=== PATIENT | female | born 1940 | race Caucasian/White ===

== ENCOUNTER 2025-06-10 18:20 | Inpatient (IN) | payer OTHER, SELFPAY ==
[2025-06-10] VITALS (8 sets, daily range): BP systolic 136–165; BP diastolic 95–117; BMI 34.0
--- NOTE | 2025-06-10 13:32 | ED.GENMED ---
History of Present Illness
<Isma Montana PA-C - Last Filed: 06/10/25 16:36>
General
Chief Complaint: Change in Mental Status
Source: patient
Exam Limitations: none
Time Seen by Provider: 06/10/25 12:58
History of Present Illness
History of Present Illness:
84-year-old female presents with granddaughter who is the secondary power of erisa attorney stating the patient has not been herself. She was discharged from [facility] about 1 week ago for new onset A-fib and
insomnia. She was placed on metoprolol. While there they were trialing different medications for sleep including Ativan Haldol and Zyprexa and more recently trazodone. She has not been sleeping mainly secondary to a urinary frequency. She is up
every 20-minute having the urge to urinate but does not go. This is ongoing for the patient. She does have a history of dementia but she is off more than usual. Patient denies any pain. She does complain of shortness of breath. She feels like
she has to keep taking deep breaths.
Phy Exam
<Isma Montana PA-C - Last Filed: 06/10/25 16:36>
Physical Exam
Physical Exam:
General: Well-appearing female no acute respiratory distress
HEENT: Normocephalic atraumatic
Heart: Irregular rate and rhythm
Lungs: Tachypneic but clear
Abdomen is soft nontender
Extremities: No cyanosis or significant edema
Skin: Warm no rash
Course
<CLAUDIA Dumont Last Filed: 06/10/25 16:36>
Orders/Labs/Results
Orders:
Orders
06/10/25 13:22
CT Head W/o Iv Contrast Urgent
Comment:
Reason For Exam: confusion, slurred speech
06/10/25 13:23
CT Abd/pelvis W Iv Cont Urgent
Comment:
Reason For Exam: urinary frequency,
06/10/25 13:47
Basic Metabolic Panel Urgent
Complete Blood Count/With Diff Urgent
NT-proBNP Urgent
Troponin I Urgent
Urinalysis Reflex To Culture Urgent
Date Specimen was Collected: 06/10/25
Time Specimen was Collected: 13:41
Urine Microscopic Reflex Cult Urgent
Urine Culture Urgent
CARIN Source: U
Specimen Description:
Date Specimen was Collected: 06/10/25
Time Specimen was Collected: 13:41
06/10/25 14:03
Lorazepam [Ativan] 1 mg PO NOW STA
06/10/25 14:38
CR Chest - 2 Views Urgent
Comment:
Reason For Exam: sob
06/10/25 Dinner
Cholesterol Lowering
Cholesterol Lowering: Sodium, 2 Gram
06/10/25 15:[address] Non Medication Order As Directed
Physician Order: patient can have heart healthy diet
Speech screening from Nursing [Speech Screening from [facility]] Routine
06/10/25 16:10
Ixyfu-Apiz-Izidfbt Urgent
Potassium Urgent
06/10/25 16:24
Bladder Scan- Treatment ONCE
Abnormal Lab Results
06/10/25
13:47
RBC 4.09 L 10^6/uL
(4.20-5.40)
Hct 36.7 L %
(37.0-47.0)
Absolute Neuts (auto) 7.2 H 10^3/uL
(1.4-6.5)
Absolute Monos (auto) 0.8 H 10^3/uL
(0.1-0.6)
Lymphocytes % 17.2 L %
(20.5-51.1)
Sodium 134 L mmol/L
(135-145)
BUN 28 H mg/dl
(7-17)
Calcium 10.4 H mg/dl
(8.4-10.2)
Troponin I 0.036 H* ng/ml
Ur Occult Blood Reflex 1+ A
(Negative)
Leukocyte Esterase Rfl 3+ A
(Negative)
Urine Bacteria (Reflex) Few A
(Negative)
06/10/25 13:47
Vital Signs
Initial and Last Documented VS:
Initial Vital Signs
Temp Pulse Resp BP Pulse Ox
98.6 F 82 16 155/95 96
06/10/25 12:29 06/10/25 12:29 06/10/25 12:29 06/10/25 12:29 06/10/25 12:29
Last Documented Vital Signs
Temp Pulse Resp BP Pulse Ox
98.6 F 96 16 163/111 97
06/10/25 12:29 06/10/25 15:00 06/10/25 14:06 06/10/25 15:06 06/10/25 15:00
<Nixon Andrade MD - Last Filed: 06/10/25 15:29>
Orders/Labs/Results
Orders:
Orders
06/10/25 13:22
CT Head W/o Iv Contrast Urgent
Comment:
Reason For Exam: confusion, slurred speech
06/10/25 13:23
CT Abd/pelvis W Iv Cont Urgent
Comment:
Reason For Exam: urinary frequency,
06/10/25 13:47
Basic Metabolic Panel Urgent
Complete Blood Count/With Diff Urgent
NT-proBNP Urgent
Troponin I Urgent
Urinalysis Reflex To Culture Urgent
Date Specimen was Collected: 06/10/25
Time Specimen was Collected: 13:41
Urine Microscopic Reflex Cult Urgent
Urine Culture Urgent
CARIN Source: U
Specimen Description:
Date Specimen was Collected: 06/10/25
Time Specimen was Collected: 13:41
06/10/25 14:03
Lorazepam [Ativan] 1 mg PO NOW STA
06/10/25 14:38
CR Chest - 2 Views Urgent
Comment:
Reason For Exam: sob
06/10/25 Dinner
Cholesterol Lowering
Cholesterol Lowering: Sodium, 2 Gram
06/10/25 15:[address] Non Medication Order As Directed
Physician Order: patient can have heart healthy diet
Speech screening from Nursing [Speech Screening from [facility]] Routine
06/10/25 16:10
Rrgca-Xrng-Bazdfzf Urgent
Potassium Urgent
06/10/25 16:24
Bladder Scan- Treatment ONCE
Abnormal Lab Results
06/10/25
13:47
RBC 4.09 L 10^6/uL
(4.20-5.40)
Hct 36.7 L %
(37.0-47.0)
Absolute Neuts (auto) 7.2 H 10^3/uL
(1.4-6.5)
Absolute Monos (auto) 0.8 H 10^3/uL
(0.1-0.6)
Lymphocytes % 17.2 L %
(20.5-51.1)
Sodium 134 L mmol/L
(135-145)
BUN 28 H mg/dl
(7-17)
Calcium 10.4 H mg/dl
(8.4-10.2)
Troponin I 0.036 H* ng/ml
Ur Occult Blood Reflex 1+ A
(Negative)
Leukocyte Esterase Rfl 3+ A
(Negative)
Urine Bacteria (Reflex) Few A
(Negative)
06/10/25 13:47
Vital Signs
Initial and Last Documented VS:
Initial Vital Signs
Temp Pulse Resp BP Pulse Ox
98.6 F 82 16 155/95 96
06/10/25 12:29 06/10/25 12:29 06/10/25 12:29 06/10/25 12:29 06/10/25 12:29
Last Documented Vital Signs
Temp Pulse Resp BP Pulse Ox
98.6 F 96 16 163/111 97
06/10/25 12:29 06/10/25 15:00 06/10/25 14:06 06/10/25 15:06 06/10/25 15:00
<Isma Montana PA-C - Last Filed: 06/10/25 16:36>
MDM/Problems Addressed
Differential Diagnosis Includes:
Patient presents with granddaughter who expresses her frustration with the patient's current state. She is not sleeping she is not herself. She has been slurring her words. Recent visit to [facility] with new diagnosis of
A-fib now on Eliquis and metoprolol. She has trialed several different sleeping medications but she is not sleeping. Urinalysis has been negative. Will recheck this today. Given the slurred speech and new Eliquis, will order CT of the head.
Also abdomen and pelvis CT pending to evaluate the bladder and kidneys. Check labs.
<Isma Montana PA-C - Last Filed: 06/10/25 16:36>
*Pulse Oximetry
SaO2: 96
Oxygen Mode of Delivery: Room air
Patient hypoxic: no
*Critical Care Note
Total Time (30-74mins, 75-104mins- exclusive of procedures): Not Applicable
<Isma Montana PA-C - Last Filed: 06/10/25 16:36>
Update Note
Update Note:
BNP and troponin mildly elevated. CT demonstrates very large exophytic cyst on the right kidney displacing the colon. This may have some into the patient's urinary symptoms. Bladder scan ordered if retaining a significant amount of urine will
consider catheter. She may require Lasix for CHF. Discussed with emergency room attending. Will admit for further evaluation
ED Attending Note
<Isma Montana PA-C - Last Filed: 06/10/25 16:36>
-
Portions of this chart may have been created with voice recognition software.� Occasional wrong word or��sound alike� substitutions may have occurred due to the inherent limitations of voice recognition software.
<Nixon Andrade MD - Last Filed: 06/10/25 15:29>
ED Attending Note
Patient seen and examined by attending physician: Yes
ED Attending Note:
I have seen and evaluated the patient with a [id number] encounter. I have spoken to the advance practicer provider and involved in the medical history, the physical exam, medical decision making.
Evaluation and management service: agree unless noted differently below.
Results interpretation: agree unless noted differently below.
Focused HPI: 84-year-old female with history of mild dementia presents to the ER with granddaughter for evaluation of multiple complaints. Primarily granddaughter with concern for mental status changes over the past week or so�reports that patient
has been increasingly lethargic. Patient himself complains mainly of feeling short of breath 'I have to focus on my breathing.' It sounds like she has had significant trouble sleeping�unclear whether this is due to breathing issues or due to
urinary issues. Granddaughter notes the patient has severe urinary urgency where she has to [place] to the restroom and will urinate very small amounts. She reports that patient has been evaluated for UTI multiple times without infection. Aside from
breathing issues and urinary issues patient has also had some slurred speech although granddaughter attributes this to fatigue from lack of sleep. Patient did notably have a recent admission at [facility] for similar symptoms�[facility]
indicates that there was some question of heart failure and patient had echocardiogram at the time which reportedly showed ejection fraction of 55 to 60%.
Physical exam: Patient is sitting upright, sleeping but easily arousable. She is hypertensive but has otherwise normal vitals. She has no cardiac rubs gallops or murmurs. Breath sounds are somewhat diminished at the lung bases. She has trace
edema around her lower legs. No JVD.
Medical Decision Makin-year-old female presents with multiple complaints including shortness of breath, sleep issues, lethargy, urinary symptoms. Vitals and exam as above. Labs were sent off including a CBC and a CMP which showed no
clinically significant abnormalities. Troponin and proBNP both elevated. Urinalysis negative for infection. Awaiting chest x-ray. Daughter reporting slurred speech, checking CT head for completeness but low suspicion for acute stroke. With
urinary symptoms and plan urinalysis will check CT to rule out nephrolithiasis or other pathology. Overall I think much of her clinical picture can be explained with congestive heart failure, we will plan likely for admission for diuresis and
monitoring.
Discharge Plan
Departure
Patient Disposition: Admit
Date of Disposition: 06/10/25
Time of Disposition: 16:36
Presentation/result/management discussed w/ accepting MD/DO: Hospitalist
Discharge Problem:
CHF (congestive heart failure)
Prescriptions:
No Action
trazodone 50 mg tablet
50 mg PO HS
olanzapine 2.5 mg tablet
2.5 mg PO DAILYPRN PRN (Reason: agitation)
metoprolol tartrate 25 mg tablet
25 mg PO BID
trospium 20 mg tablet
20 mg PO BID
Eliquis 5 mg tablet
5 mg PO BID
Referrals:
UNKNOWN - PT DOES,NOT KNOW [Family Provider]
Interventions
Interventions:
*Risk Screen - Suicide Last Done: 06/10/25 12:29
*General Assessment Last Done: 06/10/25 13:30
*Neglect/Abuse Screening Last Done: 06/10/25 13:30
*ED COVID-19 Vaccine History Last Done: 06/10/25 13:30
ED- Cardiac Assessment Last Done: 06/10/25 13:30
ED- Neurological Assessment Last Done: 06/10/25 13:30
ED Swallowing Screen Last Done: 06/10/25 13:30
Discharge Date and Time
Print Language: DANISH
[2025-06-10 14:09] LABS: Urine Character Clear (Clear)
[2025-06-10 14:15] LABS: Urine Red Blood Cell 0-2 /HPF (0-2)
[2025-06-10 14:28] LABS: Blood Urea Nitrogen 28 mg/dl (7-17); Calcium 10.4 mg/dl (8.4-10.2); Carbon Dioxide 26 mmol/L (22-30); Chloride 103 mmol/L (98-107); Glucose 97 mg/dl (70-99); Sodium 134 mmol/L (135-145); eGFR 54.87
[2025-06-10 14:31] LABS: Troponin I 0.036 ng/ml
[2025-06-10 14:34] LABS: Hematocrit 36.7 % (37.0-47.0); Hemoglobin 12.5 g/dL (12.0-16.0); Mean Corp Hgb Conc. 34.1 g/dL (33.0-37.0); Mean Corpuscular Volume 89.7 fL (81.0-99.0); Nucleated Red Blood Cells % 0 %; Platelet Count 244 10^3/uL (130-400); Red Cell Dist. Width 12.9 % (11.5-14.5)
--- NOTE | 2025-06-10 16:38 | HPS.HSE ---
Family Physician
-
Family Physician: NOT KNOW UNKNOWN - PT DOES
Chief Complaint
-
Urinary Frequency and Insomnia
History of Present Illness
Patient is an 84 y/o female past medical history of newly diagnosed atrial fibrillation, severe left ventricular hypertrophy and dementia who presents with urinary frequency and worsening insomnia. Additional history is obtained from patient's
granddaughter at the bedside. Patient was admitted to [facility] from May 21- with atrial fibrillation with rapid ventricular response. Granddaughter notes that hospitalization was complicated by acute delirium with agitation, and since
discharge patient has not been sleeping at night. She was started on trazodone without much improvement. Patient has also been getting up frequently at night to use the bathroom, but states that when she attempt to void she is unable to do so.
She was started on trospium about 3 days ago by her PCP for overactive bladder without any improvement in her symtpoms. Bladder scan in the emergency department revealed urinary retention.
Medical History
Past Medical History
Past Medical History: Reports Other
Additional Past Medical History:
Atrial Fibrillation
Severe Concentric Left Ventricular Hypertrophy
Dementia
Insomnia
Past Surgical History: Reports Other
Additional Past Surgical History:
Abdominal Hernia w/ Mesh Repair
KAELA w/BSO
Laminectomy
Social History
Tobacco: Non-smoker
Living: With Family
Family History
Family History: Not pertinent
Allergies / Home Medications
Allergies reflects when Allergies were last updated in [facility].
Home Medications with original date entered in [facility]
Allergy/Medication List:
Allergies
Allergy/AdvReac Type Severity Reaction Status Date / Time
No Known Allergies Allergy Unverified 06/10/25 12:42
Home Medications
apixaban 5 mg tablet (Eliquis) 5 mg PO BID 06/10/25
metoprolol tartrate 25 mg tablet 25 mg PO BID 06/10/25
olanzapine 2.5 mg tablet 2.5 mg PO DAILYPRN PRN agitation 06/10/25
trazodone 50 mg tablet 50 mg PO HS 06/10/25
trospium 20 mg tablet 20 mg PO BID 06/10/25
Review of Systems
-
A 12 point ROS was completed and negative except as noted: Yes
Constitutional: Denies Fever
Respiratory: Denies Cough or Trouble Breathing
Cardiac: Denies Chest Pain or Palpitations
Abdomen/GI: Reports Constipated
Physical Exam
Vital Signs
Vital Signs
Temp Pulse Resp BP Pulse Ox
98.6 F 96 16 163/111 97
06/10/25 12:29 06/10/25 15:00 06/10/25 14:06 06/10/25 15:06 06/10/25 15:00
Physical Exam
General: Comfortable and Conversant
HEENT: Anicteric and Moist mucous membranes
Respiratory: Clear and Non Labored Respirations; No Rales
Cardiac: S1/S2 and Irregular Rhythm; No Tachycardia
GI: Soft and Non Tender
Rectal: Deferred by Provider
Musculoskeletal: No Clubbing, No Cyanosis and No Edema
Skin: Warm and Dry
Neuro: Awake, Alert and No Motor Deficits
Psych: Calm
Laboratory Results
-
06/10/25 13:47
Laboratory Results
Total Bilirubin Cancelled 06/10/25 13:47
AST Cancelled 06/10/25 13:47
ALT Cancelled 06/10/25 13:47
Alkaline Phosphatase Cancelled 06/10/25 13:47
Troponin I 0.036 ng/ml H* 06/10/25 13:47
Data Reviewed
-
CT Scan: Report Reviewed by me
Lab Data: Labs Reviewed by me
Old Records: Reviewed
Impression/Plan
-
Acute Urinary Retention, possibly related to constipation/displaced colon in setting of large renal cyst
-Roberts catheter placed in emergency department
-Consult Urology
Large Right Renal Cyst
-Consult Urology
Constipation, suspect related to displacement of colon due to large renal cyst
-Start MiraLAX every other day
Elevated Troponin
-Reviewed prior records for [place] which also revealed elevated troponin, possibly chronically elevated
-Patient is without chest pain at present time
-Continue to monitor
Elevated BNP
-Patient without clinical symptoms of heart failure at this time
-Echo May 2025: Severely increased wall thickness consistent with severe concentric hypertrophy. Left ventricular ejection fraction 55-60%
-Continue low sodium diet
-Monitor Daily Weights
Atrial Fibrillation, seems to be persistent at this point in time
-Continue Eliquis for anticoagulation
-Continue metoprolol for rate control
Dementia
-Patient with prior history of hospital acquired delirium and agitation - Monitor for mood/behavior changes during hospitalization
-Continue Zyprexa PRN
Insomnia
-Continue trazodone
-Add melatonin
DVT proph: Eliquis
Code Status: DNR
[2025-06-10 16:43] LABS: ALT (SGPT) 16 U/L (0-35); AST (SGOT) 25 U/L (14-36); Albumin 3.9 g/dl (3.5-5.0); Alkaline Phosphatase 59 U/L (38-126); Potassium 3.4 mmol/L (3.5-5.1); Total Protein 6.2 g/dl (6.3-8.2)
--- NOTE | 2025-06-10 18:08 | W.PN.UPDATE ---
Update Note
Progress Note Update
Seen and examined by me independently in collaboration with the Physician press assistant Ximena.
Past medical history/social history/medication/allergies reviewed.
Lab data and imaging data reviewed.
Patient brought in because of significant increased frequency of urine.
Patient has a cognitive impairment in the form of dementia according to granddaughter is present at the bedside. Granddaughter is a registered nurse. Increased frequency of urine was ongoing for a while.
Last month she was admitted to [facility] for new onset of A-fib. While she was there she had sundowning issues. She then moved to be with her granddaughter after discharge. Patient is from [place] and her son was living
with her.
We discovered to have a large urinary retention of 700 mL plus and also huge right kidney cyst occupying a huge space in the right abdomen pushing the ascending colon to the left. Not noted to have any prior kidney issues. She apparently was in
her usual state of health prior to the A-fib. She had no chronic diagnoses before that.
Urinalysis does not suggest UTI.
Acute large volume urinary retention suspected neurogenic bladder dysfunction. She has large space-occupying right renal cyst.
Admit to hospital for further evaluation and treatment.
Leave the Roberts catheter in. Consult urology.
History of dementia with behavioral disturbances and sundowning. Continue with trazodone. Add melatonin. Use olanzapine as needed-granddaughter would prefer not to use it but if it becomes really [id number] then okay with it. Watch for falls.
Recent onset of atrial fibrillation on beta-bin and Eliquis which I would continue. Clinically she seems to be in rate controlled A-fib. EKG pending. She has indeterminate troponin elevation without chest pain. Continue to trend troponins
for now. She apparently had high elevation of troponin at [facility]. Follow on telemetry.
Elevated BNP noted but no lower extremity edema, no JVD, chest sounds clear and chest x-ray shows no evidence of CHF. Would hold on diuretics and follow weights.
I discussed CODE STATUS with the granddaughter-wishes of pt are DNR and DNI
[2025-06-10] MEDS: DESYREL 50 MG PO (21:05)
[2025-06-10] MEDS: ELIQUIS 5 MG PO (21:05)
[2025-06-10] MEDS: MELATONIN 5 MG PO (21:05)
[2025-06-10] MEDS: LOPRESSOR 25 MG PO (21:05)
[2025-06-10 22:14] LABS: Troponin I 0.038 ng/ml
[2025-06-11] VITALS (8 sets, daily range): BP systolic 116–174; BP diastolic 80–122; O2SAT 98; BMI 34.0
--- NOTE | 2025-06-11 00:28 | PTCARENOTE ---
Pt admitted to [facility] around 2009. Pt able to answer orientation questions but is very forgetful and anxious. Pt occasionally setting off bed alarm and yelling for help and stating 'I am going to have a panic attack! I need to stand up. My legs
will rot if I don't move them'. Pt stood up at the side of the bed. Range of motion of legs done to show pt that legs are okay. Pt cooperative after. Bed alarm on and plan of care ongoing.
[2025-06-11 03:47] LABS: Troponin I 0.045 ng/ml
[2025-06-11 05:52] LABS: Hematocrit 35.6 % (37.0-47.0); Hemoglobin 11.9 g/dL (12.0-16.0); Mean Corp Hgb Conc. 33.4 g/dL (33.0-37.0); Mean Corpuscular Volume 89.2 fL (81.0-99.0); Platelet Count 221 10^3/uL (130-400); Red Cell Dist. Width 13.0 % (11.5-14.5)
[2025-06-11 06:20] LABS: Blood Urea Nitrogen 23 mg/dl (7-17); Calcium 10.0 mg/dl (8.4-10.2); Carbon Dioxide 26 mmol/L (22-30); Chloride 106 mmol/L (98-107); Estimated Creatinine Clearance 39 ml/min; Glucose 101 mg/dl (70-99); Potassium 2.9 mmol/L (3.5-5.1); Sodium 136 mmol/L (135-145); eGFR > 60.00
[2025-06-11] MEDS: KCL 40 MEQ PO (07:03)
[2025-06-11] MEDS: ELIQUIS 5 MG PO ×2 (08:17→20:36)
[2025-06-11] MEDS: MIRALAX 17 GRAMS PO (08:17)
[2025-06-11] MEDS: LOPRESSOR 25 MG PO ×2 (08:17→20:37)
--- NOTE | 2025-06-11 08:34 | CONS.URO ---
Consultation
-
Date/Time Consultation Performed: 06/11/2025 1245
Requesting Provider: Hospitalists
Performing Provider: Cayden
Reason for Consultation: urinary retention
Medical History
History of Present Illness
ED admit note: 'Patient is an 84 y/o female past medical history of newly diagnosed atrial fibrillation, severe left ventricular hypertrophy and dementia who presents with urinary frequency and worsening insomnia. Additional history is obtained
from patient's granddaughter at the bedside. Patient was admitted to [facility] from May 21- with atrial fibrillation with rapid ventricular response. Granddaughter notes that hospitalization was complicated by acute delirium with agitation,
and since discharge patient has not been sleeping at night. She was started on trazodone without much improvement. Patient has also been getting up frequently at night to use the bathroom, but states that when she attempt to void she is unable to
do so. She was started on trospium about 3 days ago by her PCP for overactive bladder without any improvement in her symtpoms. Bladder scan in the emergency department revealed urinary retention.'
Past Medical History
Past Medical History: Other (Atrial Fibrillation Severe Concentric Left Ventricular Hypertrophy Dementia Insomnia)
Past Surgical History: Other (Abdominal Hernia w/ Mesh Repair KAELA w/BSO Laminectomy)
Allergies/Home Medications
Allergies
Allergy/AdvReac Type Severity Reaction Status Date / Time
No Known Allergies Allergy Unverified 06/10/25 12:42
Home Medications
�Medication �Instructions �Recorded �Confirmed �Type
apixaban 5 mg tablet (Eliquis) 5 mg PO BID 06/10/25 06/10/25 History
metoprolol tartrate 25 mg tablet 25 mg PO BID 06/10/25 06/10/25 History
olanzapine 2.5 mg tablet 2.5 mg PO DAILYPRN PRN agitation 06/10/25 06/10/25 History
trazodone 50 mg tablet 50 mg PO HS 06/10/25 06/10/25 History
trospium 20 mg tablet 20 mg PO BID 06/10/25 06/10/25 History
Physical Exam
Vital Signs
Vital Signs
Temp Pulse Resp BP Pulse Ox
98.4 F 87 16 151/90 98
06/11/25 07:50 06/11/25 08:17 06/11/25 07:50 06/11/25 08:17 06/11/25 07:50
Lab / Testing Results
Laboratory Results
06/11/25 05:18
06/11/25 05:18
Physical Exam
elderly female currently on bedside commode
Genito-urinary: Roberts Catheter
Neuro: Awake
Assessment / Plan
-
Subtotal urinary retention -- elderly females often have capacious bladders that do not completely empty yet w/o adverse effects; likely worsened by constipation
large right renal cyst -- benign
Rec: when medically improved, d/c Roberts, start Bethanechol and teach CIC, if possible
no tx of renal cyst is indicated
Data Reviewed
-
CT Scan: Image personally visualized and interpreted (large right renal cyst; full urinary bladder)
Lab Data: Labs Reviewed
Old Records: Reviewed
[2025-06-11 10:48] LABS: Troponin I 0.047 ng/ml
--- NOTE | 2025-06-11 12:26 | W.PN.HOSP.TC ---
Today's Communication/Plan
-
CW Roberts
CW current meds
Await Urology input
PT /OT eval
Assessment / Plan
Assessment / Plan
Acute Urinary Retention, possibly related to constipation/displaced colon in setting of large renal cyst
-Roberts catheter placed in emergency department
- UA doesnt suggest UTI;no hematuria
-Consult Urology- pending
Large Right Renal Cyst
-Consult Urology
Constipation, suspect related to displacement of colon due to large renal cyst
-Started MiraLAX every other day
Elevated Troponin
-Reviewed prior records for [place] which also revealed elevated troponin, possibly chronically elevated
-Patient is without chest pain at present time
-Continue to monitor
Elevated BNP
-Patient without clinical symptoms of heart failure at this time
-Echo May 2025: Severely increased wall thickness consistent with severe concentric hypertrophy. Left ventricular ejection fraction 55-60%
-Continue low sodium diet
-Monitor Daily Weights
Atrial Fibrillation, seems to be persistent at this point in time
-Continue Eliquis for anticoagulation
-Continue metoprolol for rate control
Hypokalemia -replete
Dementia
-Patient with prior history of hospital acquired delirium and agitation - Monitor for mood/behavior changes during hospitalization
-Continue Zyprexa PRN
- No behavioral disturbance
Insomnia
-Continue trazodone
-Add melatonin
DVT proph: Eliquis
Code Status: DNR
PT/OT eval
Anticipated Discharge: 24 - 48 hours
Subjective/Interval History
-
Date of Service: June 11, 2025
Sitting in chair comfortably.
Complaints of irritation from catheter.
No fever or chills
No N/V or abdo pain
No SOB
Objective Data
-
Labs:
Laboratory Results
06/11/25
05:18
WBC 9.0
Hgb 11.9 L
Hct 35.6 L
Plt Count 221
Sodium 136
Potassium 2.9 L
Chloride 106
Carbon Dioxide 26
BUN 23 H
Creatinine 0.8
Glucose 101 H
Calcium 10.0
Vital Signs:
Vital Signs
Temp Pulse Resp BP Pulse Ox
98.1 F 71 16 141/90 97
06/11/25 11:10 06/11/25 11:10 06/11/25 11:10 06/11/25 11:10 06/11/25 11:10
I&O
06/10/25 06/11/25 06/12/25
06:59 06:59 06:59
Intake Total 960 / 960
Output Total 800 / 800 850 / 850
Balance -800 / -800 110 / 110
Physical Exam
-
General: Comfortable
Respiratory: Clear to Auscultation and Non Labored Respirations; Negative Accessory Resp Muscle Use
Cardiac: S1/S2 and Irregular Rhythm; Negative Tachycardic
GI: Soft and Other (palpable right abdominal mass)
Neuro: Awake, Alert, Oriented and No Motor Deficits; Negative Tremors
Psych: Calm
Data Reviewed
-
Labs: Labs Reviewed by me
[2025-06-11] MEDS: TYLENOL 650 MG PO ×2 (13:13→23:51)
[2025-06-11] MEDS: MELATONIN 5 MG PO (22:32)
[2025-06-11] MEDS: DESYREL 50 MG PO (22:32)
[2025-06-12] VITALS (8 sets, daily range): BP systolic 122–149; BP diastolic 82–100; PULSE 88; O2SAT 98; BMI 33.8
[2025-06-12] MEDS: ELIQUIS 5 MG PO ×2 (07:56→20:55)
[2025-06-12] MEDS: LOPRESSOR 25 MG PO ×2 (07:58→20:55)
[2025-06-12] MEDS: DULCOLAX 10 MG RECTAL (08:08)
--- NOTE | 2025-06-12 08:23 | W.PN.URO.CBU ---
Today's Communication / Plan
-
d/c Roberts; Voiding trial with Bethanechol
Assessment / Plan
-
Partial Urinary Retention -- exacerbated by constipation
large, right benign renal cyst
Diagnosis
-
Date of Service: June 12, 2025
-
Patient Diagnosis:
Partial Urinary Retention -- exacerbated by constipation
large, right benign renal cyst
Subjective
-
has moved bowels since admission
Objective
-
Vital Signs
Temp Pulse Resp BP Pulse Ox
97.5 F 88 15 147/100 98
06/12/25 08:22 06/12/25 08:22 06/12/25 08:22 06/12/25 08:22 06/12/25 08:22
Intake and Output
06/11/25 06/12/25 06/13/25
06:59 06:59 06:59
Intake Total 1919
Output Total 800 / 800 2349 / 2350
Balance -800 / -800 -430 / -430
Intake:
Oral fluids 1919
Output:
Urine, Roberts 800 / 800 2350 / 2350
Laboratory Results
06/11/25 05:18
06/11/25 05:18
Physical Exam
-
General - well developed, well nourished, no acute distress
Chest - clear bilaterally
Abdomen - soft, non-tender, positive bowel sounds, no CVAT, no incisional pain or distention
Genitalia - normal
Rectal - normal
Skin - warm & dry with no rash
Neuro - AOx3, no motor deficits
Extremities - no clubbing, no cyanosis, no edema
Incision - clean, dry
Dressing - clean, dry, intact
--- NOTE | 2025-06-12 09:56 | PTCARENOTE ---
Roberts dc'd per order. Pt tolerated well.
[2025-06-12] MEDS: COLACE 100 MG PO ×2 (11:40→20:54)
--- NOTE | 2025-06-12 11:58 | W.PN.UPDATE ---
Update Note
Progress Note Update
I spoke with daughter Viola and patient by phone.
Large benign right kidney cysts discussed -- as she is NOT willing to consider surgery, no tx is indicated.
He abdominal pain is due to her GI tract -- they will d/w medical team.
[2025-06-12] MEDS: TYLENOL 650 MG PO (12:28)
[2025-06-12] MEDS: MIRALAX 17 GRAMS PO (12:51)
[2025-06-12] MEDS: URECHOLINE 25 MG PO ×2 (12:52→19:22)
--- NOTE | 2025-06-12 14:05 | W.PN.HOSP.TC ---
Today's Communication/Plan
-
Voiding trial
Continue bowel regimen
DC planning
Assessment / Plan
Assessment / Plan
Acute Urinary Retention, possibly related to constipation/displaced colon in setting of large renal cyst
-Roberts catheter placed in emergency department
- UA doesnt suggest UTI;no hematuria
- Appreciate urology input who recommends treating constipation and starting on bethanechol. Voiding trial today plan
Large Right Renal Cyst
- Recommends no intervention by urology
Constipation, suspect related to displacement of colon due to large renal cyst
-Started MiraLAX daily. Added Colace. Advise daily bowel movement going forward for now.
Elevated Troponin
-Reviewed prior records for [place] which also revealed elevated troponin, possibly chronically elevated
-Patient is without chest pain at present time
-Continue to monitor
Elevated BNP
-Patient without clinical symptoms of heart failure at this time
-Echo May 2025: Severely increased wall thickness consistent with severe concentric hypertrophy. Left ventricular ejection fraction 55-60%
-Continue low sodium diet
-Monitor Daily Weights
Atrial Fibrillation, seems to be persistent at this point in time
-Continue Eliquis for anticoagulation
-Continue metoprolol for rate control
Hypokalemia -replete
Dementia
-Patient with prior history of hospital acquired delirium and agitation - Monitor for mood/behavior changes during hospitalization
-Continue Zyprexa PRN
- No behavioral disturbance
Insomnia
-Continue trazodone
-Add melatonin
DVT proph: Eliquis
Code Status: DNR
PT/OT eval-recommend SNF and granddaughter is agreeable.
Anticipated Discharge: Within 24 hours
Subjective/Interval History
-
Date of Service: June 12, 2025
Patient had a bowel movement yesterday with rectal suppository and again today.
According to the granddaughter she is not sure as grandma was living in [place] with the son before but she thinks her bowel movement maybe once a day or once in 2 days. They have been hard lately.
Objective Data
-
Labs:
Laboratory Results
06/12/25
12:43
Sodium Pending
Potassium Pending
Chloride Pending
Carbon Dioxide Pending
BUN Pending
Creatinine Pending
Glucose Pending
Calcium Pending
Vital Signs:
Vital Signs
Temp Pulse Resp BP Pulse Ox
98.0 F 89 15 149/97 98
06/12/25 11:00 06/12/25 11:00 06/12/25 11:00 06/12/25 11:00 06/12/25 11:00
I&O
06/11/25 06/12/25 06/13/25
06:59 06:59 06:59
Intake Total 1919 / 1919
Output Total 800 / 800 2350 / 2350
Balance -800 / -800 -430 / -430
Physical Exam
-
General: Comfortable
Respiratory: Non Labored Respirations; Negative Accessory Resp Muscle Use
Cardiac: Regular Rhythm and S1/S2
GI: Soft
Neuro: Awake, Alert and Oriented
Psych: Calm and Confused; Negative Agitated
Data Reviewed
-
Labs: Labs Reviewed by me
[2025-06-12 14:27] LABS: Blood Urea Nitrogen 22 mg/dl (7-17); Calcium 10.6 mg/dl (8.4-10.2); Carbon Dioxide 29 mmol/L (22-30); Chloride 102 mmol/L (98-107); Estimated Creatinine Clearance 31 ml/min; Glucose 119 mg/dl (70-99); Potassium 3.6 mmol/L (3.5-5.1); Sodium 137 mmol/L (135-145); eGFR 54.87
[2025-06-12] MEDS: MELATONIN 5 MG PO (20:54)
[2025-06-12] MEDS: ANUSOL HC RECTAL (20:56)
[2025-06-12] MEDS: DESYREL 50 MG PO (20:56)
[2025-06-12 22:07] LABS: Glucose - Point of Care 125 mg/dl (70-99)
[2025-06-13] VITALS (7 sets, daily range): BP systolic 120–163; BP diastolic 80–110; PULSE 74; O2SAT 97
[2025-06-13] MEDS: ZYPREXA 2.5 MG PO (02:32)
--- NOTE | 2025-06-13 09:01 | W.PN.URO.CBU ---
Today's Communication / Plan
-
I&O cath prn
Assessment / Plan
-
Partial Urinary Retention -- exacerbated by constipation
large, right benign renal cyst
Diagnosis
-
Date of Service: June 13, 2025
-
Patient Diagnosis:
Partial Urinary Retention -- exacerbated by constipation
large, right benign renal cyst
Subjective
-
did not sense urge to void; I&O cathed for 480 ml
Objective
-
Vital Signs
Temp Pulse Resp BP Pulse Ox
97.4 F 95 18 158/104 93
06/13/25 07:54 06/13/25 07:54 06/13/25 07:54 06/13/25 07:54 06/13/25 07:54
Intake and Output
06/12/25 06/13/25 06/14/25
06:59 06:59 06:59
Intake Total 1919 880 / 880
Output Total 0 / 0 480 / 480
Balance -430 / -430 400 / 400
Intake:
Oral fluids 1919 880 / 880
Output:
Urine, Roberts 0 / 2350
Straight cath output 480 / 480
Other:
Number of approximated MODERATE 2
amounts of urine
Laboratory Results
06/11/25 05:18
06/12/25 12:43
Physical Exam
-
General - asleep in bedside lounger
[2025-06-13] MEDS: LOPRESSOR 25 MG PO ×2 (09:03→23:58)
[2025-06-13] MEDS: COLACE 100 MG PO ×2 (09:04→23:58)
[2025-06-13] MEDS: ELIQUIS 5 MG PO ×2 (09:04→23:59)
[2025-06-13] MEDS: MIRALAX 17 GRAMS PO (09:04)
[2025-06-13] MEDS: ANUSOL HC RECTAL ×2 (09:08→23:58)
[2025-06-13] MEDS: URECHOLINE 25 MG PO ×3 (09:09→18:26)
--- NOTE | 2025-06-13 10:20 | PTCARENOTE ---
informed that granddaughter requests an update phone call.
--- NOTE | 2025-06-13 12:36 | W.PN.HOSP.TC ---
Today's Communication/Plan
-
DC
Assessment / Plan
Assessment / Plan
Acute Urinary Retention, possibly related to constipation/displaced colon in setting of large renal cyst
-Roberts catheter placed in emergency department
- UA doesnt suggest UTI;no hematuria
- Appreciate urology input who recommends treating constipation and starting on bethanechol. Ongoing voiding trial. Needed straight cath this morning but was able to void herself later. Continue to follow her voiding pattern.
Large Right Renal Cyst
- Recommends no intervention by urology
Constipation, suspect related to displacement of colon due to large renal cyst
-Started MiraLAX daily. Added Colace. Advise daily bowel movement going forward for now.
Elevated Troponin
-Reviewed prior records for [place] which also revealed elevated troponin, possibly chronically elevated
-Patient is without chest pain at present time
-Continue to monitor
Elevated BNP
-Patient without clinical symptoms of heart failure at this time
-Echo May 2025: Severely increased wall thickness consistent with severe concentric hypertrophy. Left ventricular ejection fraction 55-60%
-Continue low sodium diet
-Monitor Daily Weights
Atrial Fibrillation, seems to be persistent at this point in time
-Continue Eliquis for anticoagulation
-Continue metoprolol for rate control
Dementia
-Patient with prior history of hospital acquired delirium and agitation - Monitor for mood/behavior changes during hospitalization
-Continue Zyprexa PRN
- No behavioral disturbance
Insomnia
-Continue trazodone
-Add melatonin
DVT proph: Eliquis
Code Status: DNR
PT/OT eval-recommend SNF and granddaughter is agreeable.
Medically stable for discharge to rehab
Anticipated Discharge: Today
Subjective/Interval History
-
Date of Service: June 13, 2025
Pleasantly confused.
Voices no specific complaints .
patient had 2 bowel movements yesterday.
She needed to straight cath once and after that she urinated by herself.
Denies any nausea vomiting or abdominal pain today.
Objective Data
-
Vital Signs:
Vital Signs
Temp Pulse Resp BP Pulse Ox
97.6 F 92 16 147/104 97
06/13/25 11:27 06/13/25 11:31 06/13/25 11:27 06/13/25 11:31 06/13/25 11:27
I&O
06/12/25 06/13/25 06/14/25
06:59 06:59 06:59
Intake Total 1920 / 1920 880 / 880
Output Total 2350 / 2350 480 / 480
Balance -430 / -430 400 / 400
Physical Exam
-
General: No Apparent Distress
Respiratory: Clear to Auscultation and Non Labored Respirations; Negative Accessory Resp Muscle Use
Cardiac: Regular Rhythm and S1/S2; Negative Tachycardic
GI: Soft and Nontender
Neuro: Awake, Alert and Oriented (Self and place)
Psych: Calm and Confused; Negative Agitated
Data Reviewed
-
Labs: Labs Reviewed by me
--- NOTE | 2025-06-13 18:28 | PTCARENOTE ---
made aware that granddaughter requests a palliative care consult.
--- NOTE | 2025-06-13 20:09 | PTCARENOTE ---
Pt would like a palliative care consult. granddaughter at bedside. Dr. Banks aware
[2025-06-13] MEDS: DESYREL 50 MG PO (23:59)
[2025-06-13] MEDS: MELATONIN 5 MG PO (23:59)
[2025-06-14] MEDS: ZYPREXA 2.5 MG PO ×2 (03:50→22:13)
--- NOTE | 2025-06-14 04:00 | PTCARENOTE ---
Pt confused and impulsive throughout night. Startling awake and franticly wanting to stand up. Speaking in very childlike mannerisms, granddaughter confirmed this has been getting worse over past 3 weeks. Pt able to be redirected , but does become
mildly agitated. She verbalizes being agreeable nursing interventions, yet she not as agreeable once performing interventions. Pt verbalizes that she understands how to do simple things like use call gupta and stay in chair until someone can assist
her, yet she calls out and jumps out of chair. Pt continued to have difficulty urinating and emptying, BS of 403, F placed as per direction of Dr. Banks per pt granddaughter request, HEAVY EQUIPMENT TECHNICIAN aware and placed order. Urine cloudy and malodorous. HEAVY EQUIPMENT TECHNICIAN
aware, UA/UC ordered.
[2025-06-14 05:34] LABS: Urine Character Slightly Cloudy (Clear)
[2025-06-14 06:00] VITALS: BMI 34.0
[2025-06-14 06:00] LABS: Urine Squamous Cell >30 /LPF (Few)
[2025-06-14 06:01] LABS: Urine Red Blood Cell >100 /HPF (0-2); Urine White Cell >100 /HPF (0-5)
[2025-06-14 07:00] VITALS: BP 144/102
[2025-06-14] MEDS: LOPRESSOR 25 MG PO ×2 (08:48→21:14)
[2025-06-14] MEDS: ANUSOL HC 25 MG RECTAL (08:48)
[2025-06-14] MEDS: ELIQUIS 5 MG PO ×2 (08:48→21:14)
[2025-06-14] MEDS: MIRALAX 17 GRAMS PO (08:48)
[2025-06-14] MEDS: COLACE 100 MG PO ×2 (08:48→21:13)
[2025-06-14] MEDS: URECHOLINE 25 MG PO ×3 (08:52→18:02)
--- NOTE | 2025-06-14 09:00 | PTCARENOTE ---
Pt ambulated in hallway, assisted back to chair. Once sitting, red bloody drainage observed from Roberts catheter tubing. made aware.
[2025-06-14 11:59] VITALS: BP 108/70; PULSE 76; O2SAT 94
--- NOTE | 2025-06-14 12:43 | PTCARENOTE ---
Pt c/o increased anxiety and being unable to take a deep breathe. Pt requested medication for anxiety. Pt stated, 'I just can't relax'. made aware, new order provided, see MAR.
[2025-06-14] MEDS: VALIUM INJECTION 1.25 MG IV (12:52)
[2025-06-14] MEDS: FLUSH (NSS) 2 FLUSH IV (12:53)
[2025-06-14 15:00] VITALS: BP 115/75
--- NOTE | 2025-06-14 15:25 | W.PN.HOSP.TC ---
Today's Communication/Plan
-
Continue the current treatments
Ongoing disposition efforts
Assessment / Plan
Assessment / Plan
Acute Urinary Retention, possibly related to constipation/displaced colon in setting of large renal cyst
-Roberts catheter placed in emergency department
- UA doesnt suggest UTI;no hematuria
- Appreciate urology input who recommends treating constipation and starting on bethanechol. Ongoing voiding trial-failed Roberts catheter back in place. Voiding trial again in rehab. Physical therapy treatments and constipation treatments
- Blood in the Roberts bag noted but the catheter urine currently is clear. Unclear of traumatic. Will keep an eye on it for now. Patient is on Eliquis which would continue if the urine remains clear.
Large Right Renal Cyst
- Recommends no intervention by urology
Constipation, suspect related to displacement of colon due to large renal cyst
- Continue with Colace and MiraLAX. Advise daily bowel movement going forward for now.
Elevated Troponin
-Reviewed prior records for [place] which also revealed elevated troponin, possibly chronically elevated
-Patient is without chest pain at present time
-Continue to monitor
Elevated BNP
-Patient without clinical symptoms of heart failure at this time
-Echo May 2025: Severely increased wall thickness consistent with severe concentric hypertrophy. Left ventricular ejection fraction 55-60%
-Continue low sodium diet
-Monitor Daily Weights
Atrial Fibrillation, seems to be persistent at this point in time
-Continue Eliquis for anticoagulation
-Continue metoprolol for rate control
Dementia
-Patient with prior history of hospital acquired delirium and agitation - Monitor for mood/behavior changes during hospitalization
-Continue Zyprexa PRN
- No behavioral disturbance
Insomnia
-Continue trazodone
-Add melatonin
DVT proph: Eliquis
Code Status: DNR
PT/OT eval-recommend SNF and granddaughter is agreeable.
Anticipated Discharge: 24 - 48 hours
Subjective/Interval History
-
Date of Service: June 14, 2025
Patient was noted to be restless and anxious by the nursing staff. Calm down after getting Ativan.
Patient complains of sleep issues and requesting a sleep aid.
Patient's son at bedside.
Patient denies any nausea vomiting or abdominal pain.
Roberts catheter went in because of retention last night. She had some blood in the Roberts bag and there was a concern it was traumatic.
Denies shortness of breath.
Objective Data
-
Vital Signs:
Vital Signs
Temp Pulse Resp BP Pulse Ox
97.7 F 88 16 144/102 97
06/14/25 07:00 06/14/25 08:48 06/14/25 07:00 06/14/25 08:48 06/14/25 07:00
I&O
06/13/25 06/14/25 06/15/25
06:59 06:59 06:59
Intake Total 880 / 880 720 / 720
Output Total 480 / 480 350 / 350
Balance 400 / 400 370 / 370
Physical Exam
-
General: No Apparent Distress
HEENT: Moist Mucous Membranes
Respiratory: Crackles (Few bibasilar crackles) and Non Labored Respirations; Negative Wheezes or Accessory Resp Muscle Use
Cardiac: Regular Rhythm and S1/S2
GI: Soft
Genito-urinary: Bloody Urine (Blood in the Roberts bag but catheter urine looks clear now) and Roberts
Neuro: Awake, Alert and Oriented (Self only)
Psych: Calm and Confused; Negative Agitated
Data Reviewed
-
Labs: Labs Reviewed by me
[2025-06-14] MEDS: ANUSOL HC RECTAL (21:13)
[2025-06-14] MEDS: MELATONIN 5 MG PO (21:14)
[2025-06-14] MEDS: DESYREL 50 MG PO (21:14)
[2025-06-14 23:00] VITALS: BP 118/75
[2025-06-15] MEDS: VALIUM INJECTION 1.25 MG IV (01:18)
--- NOTE | 2025-06-15 03:20 | PTCARENOTE ---
Addendum entered by Kalli Balderrama RN 06/15/25 06:06:
Pt also intermittently wakes with right leg restlessness and/or panic with associated SOB.
Original Note:
very poor sleep, sleeps and wakes in a startle frequently. AOX 3 but confused coversation and poor recollection as to why she is here. More anxious, restless impulsive and mildy agitated as night progressed despite medication.
[2025-06-15 07:37] VITALS: BP 144/82
[2025-06-15 08:01] LABS: Hematocrit 37.4 % (37.0-47.0); Hemoglobin 12.4 g/dL (12.0-16.0); Mean Corp Hgb Conc. 33.2 g/dL (33.0-37.0); Mean Corpuscular Volume 90.6 fL (81.0-99.0); Platelet Count 245 10^3/uL (130-400); Red Cell Dist. Width 13.2 % (11.5-14.5)
[2025-06-15 08:36] LABS: Blood Urea Nitrogen 34 mg/dl (7-17); Calcium 10.8 mg/dl (8.4-10.2); Carbon Dioxide 22 mmol/L (22-30); Chloride 104 mmol/L (98-107); Estimated Creatinine Clearance 26 ml/min; Glucose 112 mg/dl (70-99); Potassium 3.4 mmol/L (3.5-5.1); Sodium 135 mmol/L (135-145); eGFR 44.08
[2025-06-15] MEDS: COLACE 100 MG PO ×2 (10:19→21:01)
[2025-06-15] MEDS: ELIQUIS 5 MG PO ×2 (10:19→21:01)
[2025-06-15] MEDS: ANUSOL HC 25 MG RECTAL (10:19)
[2025-06-15] MEDS: MIRALAX 17 GRAMS PO (10:20)
[2025-06-15] MEDS: LOPRESSOR 25 MG PO ×2 (10:20→21:02)
[2025-06-15] MEDS: LR 1000 IV ×2 (10:24→23:09)
[2025-06-15] MEDS: KCL ELIXIR 40 MEQ PO (10:24)
[2025-06-15] MEDS: URECHOLINE 25 MG PO ×3 (10:26→17:39)
--- NOTE | 2025-06-15 10:32 | W.PN.HOSP.TC ---
Today's Communication/Plan
-
Start on IV fluids. Check creatinine tomorrow.
Palliative care consult tomorrow.
Assessment / Plan
Assessment / Plan
Acute Urinary Retention, possibly related to constipation/displaced colon in setting of large renal cyst
-Roberts catheter placed in emergency department
- UA doesnt suggest UTI;no hematuria
- Appreciate urology input who recommends treating constipation and starting on bethanechol. Ongoing voiding trial-failed Roberts catheter back in place. Voiding trial again in rehab. Physical therapy treatments and constipation treatments
- Blood in the Roberts bag noted but the catheter urine currently is clear. Unclear of traumatic. Will keep an eye on it for now. Patient is on Eliquis which would continue if the urine remains clear.
MAGO - raise in Cr noted . Doubt obstructive uropathy -follow draining well. No extrarenal losses. Not sure about oral intake. BUN is up. Will start on IV fluids and check creatinine tomorrow and see if this is dehydration related.
Large Right Renal Cyst
- Recommends no intervention by urology
Constipation, suspect related to displacement of colon due to large renal cyst
- Continue with Colace and MiraLAX. Advise daily bowel movement going forward for now.
Elevated Troponin
-Reviewed prior records for [place] which also revealed elevated troponin, possibly chronically elevated
-Patient is without chest pain at present time
-Continue to monitor
Elevated BNP
-Patient without clinical symptoms of heart failure at this time
-Echo May 2025: Severely increased wall thickness consistent with severe concentric hypertrophy. Left ventricular ejection fraction 55-60%
-Continue low sodium diet
-Monitor Daily Weights
Atrial Fibrillation, seems to be persistent at this point in time
-Continue Eliquis for anticoagulation
-Continue metoprolol for rate control
Dementia
-Patient with prior history of hospital acquired delirium and agitation - Monitor for mood/behavior changes during hospitalization
-Continue Zyprexa PRN
- No behavioral disturbance
Insomnia
-Continue trazodone
-Add melatonin
DVT proph: Eliquis
Code Status: DNR
PT/OT eval-recommend SNF and granddaughter is agreeable.
Son and granddaughter want to have palliative care consult which will place tomorrow
Anticipated Discharge: Within 24 hours
Subjective/Interval History
-
Date of Service: June 15, 2025
Patient very sleepy this morning. Checked with RN and apparently she did not sleep at all last night.
No nausea vomiting but not sure how much her oral intake is. No diarrhea. Roberts catheter with clear urine.
Son at bedside who helped her out to the bathroom and she was doing okay without agitation or major confusion.
Objective Data
-
Labs:
Laboratory Results
06/15/25
07:10
WBC 11.1 H
Hgb 12.4
Hct 37.4
Plt Count 245
Sodium 135
Potassium 3.4 L
Chloride 104
Carbon Dioxide 22
BUN 34 H
Creatinine 1.2 H
Glucose 112 H
Calcium 10.8 H
Vital Signs:
Vital Signs
Temp Pulse Resp BP Pulse Ox
98.2 F 86 16 144/82 97
06/15/25 07:37 06/15/25 10:20 06/15/25 07:37 06/15/25 10:20 06/15/25 07:37
I&O
06/14/25 06/15/25 06/16/25
06:59 06:59 06:59
Intake Total 720 / 720 450 / 450
Output Total 350 / 350 450 / 450 550 / 550
Balance 370 / 370 0 / 0 -550 / -550
Physical Exam
-
General: Comfortable
Respiratory: Non Labored Respirations; Negative Accessory Resp Muscle Use
Cardiac: Regular Rhythm and S1/S2; Negative Tachycardic
GI: Soft
Genito-urinary: Clear Urine and Roberts
Neuro: Other (sleepy)
Psych: Calm and Confused; Negative Agitated
Data Reviewed
-
Labs: Labs Reviewed by me
--- NOTE | 2025-06-15 11:24 | W.PN.URO.CBU ---
Today's Communication / Plan
-
Roberts placed for 350 ml per medical team's order.
will sign off
Assessment / Plan
-
Partial Urinary Retention -- exacerbated by constipation
large, right benign renal cyst
Diagnosis
-
Date of Service: June 15, 2025
-
Patient Diagnosis:
Partial Urinary Retention -- exacerbated by constipation
large, right benign renal cyst
Objective
-
Vital Signs
Temp Pulse Resp BP Pulse Ox
98.2 F 86 16 144/82 97
06/15/25 07:37 06/15/25 10:20 06/15/25 07:37 06/15/25 10:20 06/15/25 07:37
Intake and Output
06/14/25 06/15/25 06/16/25
06:59 06:59 06:59
Intake Total 720 / 720 450 / 450
Output Total 350 / 350 450 / 450 550 / 550
Balance 370 / 370 0 / 0 -550 / -550
Intake:
Oral fluids 720 / 720 450 / 450
Output:
Urine, Roberts 450 / 450 550 / 550
Straight cath output 350 / 350
Other:
Number of approximated SMALL 1
amounts of urine
Number of approximated MODERATE 2
amounts of urine
Laboratory Results
06/15/25 07:10
06/15/25 07:10
Physical Exam
-
General - well developed, well nourished, no acute distress
Chest - clear bilaterally
Abdomen - soft, non-tender, positive bowel sounds, no CVAT, no incisional pain or distention
Genitalia - normal
Rectal - normal
Skin - warm & dry with no rash
Neuro - AOx3, no motor deficits
Extremities - no clubbing, no cyanosis, no edema
Incision - clean, dry
Dressing - clean, dry, intact
[2025-06-15 15:04] VITALS: BP 139/99
[2025-06-15] MEDS: TYLENOL 650 MG PO (21:00)
[2025-06-15] MEDS: DESYREL 50 MG PO (21:02)
[2025-06-15] MEDS: MELATONIN 5 MG PO (21:02)
[2025-06-15] MEDS: ANUSOL HC RECTAL (21:14)
[2025-06-15 23:00] VITALS: BP 125/81
[2025-06-15] MEDS: ZYPREXA 2.5 MG PO (23:10)
[2025-06-16] MEDS: ZYPREXA 2.5 MG PO ×2 (02:43→22:19)
[2025-06-16] MEDS: TYLENOL ORAL SOLUTION 650 MG PO (02:43)
[2025-06-16 07:30] VITALS: BP 135/86
--- NOTE | 2025-06-16 09:02 | W.PN.HOSP.TC ---
Today's Communication/Plan
-
Psych eval. Hospice consult. Chest x-ray. Discharge planning
Assessment / Plan
Assessment / Plan
Physical exam:
General: Well Developed, Well Nourished and No Apparent Distress
HEENT: Normocephalic, Atraumatic and Moist Mucous Membranes
Respiratory: Clear to Auscultation; Negative Wheezes, Rales or Rhonchi
Cardiac: Regular Rhythm and S1/S2
GI: Soft, Nontender and Nondistended
Musculoskeletal: No Clubbing, No Cyanosis and No Edema
Neuro: Awake, Alert and Oriented
Psych: Calm
A/P:
Acute Urinary Retention, possibly related to constipation/displaced colon in setting of large renal cyst
-Roberts catheter placed in emergency department
- UA doesnt suggest UTI;no hematuria
- Appreciate urology input who recommends treating constipation and starting on bethanechol. Ongoing voiding trial-failed Roberts catheter back in place. Voiding trial again in rehab. Physical therapy treatments and constipation treatments
- Blood in the Roberts bag noted but the catheter urine currently is clear. Unclear of traumatic. Will keep an eye on it for now. Patient is on Eliquis which would continue if the urine remains clear.
Possible UTI
Start IV ceftriaxone
Urine culture pansensitive E. coli
MAGO - raise in Cr noted . Doubt obstructive uropathy -follow draining well. No extrarenal losses. Not sure about oral intake. BUN is up. On IV fluids and check creatinine today and remains the same so might stop it.
Large Right Renal Cyst
- Recommends no intervention by urology
Constipation, suspect related to displacement of colon due to large renal cyst
- Continue with Colace and MiraLAX. Advise daily bowel movement going forward for now.
Elevated Troponin
-Reviewed prior records for [place] which also revealed elevated troponin, possibly chronically elevated
-Patient is without chest pain at present time
-Continue to monitor
Elevated BNP
-Will obtain a chest x-ray today
-Patient without clinical symptoms of heart failure at this time
-Echo May 2025: Severely increased wall thickness consistent with severe concentric hypertrophy. Left ventricular ejection fraction 55-60%
-Continue low sodium diet
-Monitor Daily Weights
Atrial Fibrillation, seems to be persistent at this point in time
-Continue Eliquis for anticoagulation
-Continue metoprolol for rate control
Dementia
-Patient with prior history of hospital acquired delirium and agitation - Monitor for mood/behavior changes during hospitalization
-Continue Zyprexa PRN
- No behavioral disturbance
- Discussed with son at bedside, her POA, and he requested psychiatry consultation-psychiatry consulted by myself today.
Insomnia
-Continue trazodone
-Add melatonin
DVT proph: Eliquis
Code Status: DNR
PT/OT eval-recommend SNF and granddaughter is agreeable.
Son and granddaughter wanted to have palliative care consult and will have hospice consult as inpatient and will have palliative care evaluation as outpatient and family is agreeable with this plan.
Time spent 35 minutes
Anticipated Discharge: 24 - 48 hours
Subjective/Interval History
-
Date of Service: June 16, 2025
Patient was agitated overnight but more calm this morning. Describes some mild shortness of breath. Afebrile. Son reports urine a little bit more concentrated.
Objective Data
-
Labs:
Laboratory Results
06/16/25
06:00
WBC Pending
Hgb Pending
Hct Pending
Plt Count Pending
Sodium Pending
Potassium Pending
Chloride Pending
Carbon Dioxide Pending
BUN Pending
Creatinine Pending
Glucose Pending
Calcium Pending
Vital Signs:
Vital Signs
Temp Pulse Resp BP Pulse Ox
98.7 F 83 16 135/86 97
06/15/25 23:00 06/16/25 07:30 06/16/25 07:30 06/16/25 07:30 06/16/25 07:30
I&O
06/15/25 06/16/25 06/17/25
06:59 06:59 06:59
Intake Total 450 / 450 1260 / 1260
Output Total 450 / 450 1550 / 1550
Balance 0 / 0 -290 / -290
[2025-06-16 09:56] LABS: Hematocrit 36.8 % (37.0-47.0); Hemoglobin 12.0 g/dL (12.0-16.0); Mean Corp Hgb Conc. 32.6 g/dL (33.0-37.0); Mean Corpuscular Volume 92.2 fL (81.0-99.0); Platelet Count 246 10^3/uL (130-400); Red Cell Dist. Width 13.3 % (11.5-14.5)
[2025-06-16] MEDS: ANUSOL HC 25 MG RECTAL (10:10)
[2025-06-16] MEDS: LOPRESSOR 25 MG PO ×2 (10:10→20:17)
[2025-06-16] MEDS: COLACE 100 MG PO ×2 (10:11→20:16)
[2025-06-16] MEDS: MIRALAX 17 GRAMS PO (10:11)
[2025-06-16] MEDS: ELIQUIS 5 MG PO ×2 (10:11→20:16)
[2025-06-16] MEDS: URECHOLINE 25 MG PO ×3 (10:11→18:05)
[2025-06-16 10:30] LABS: Blood Urea Nitrogen 35 mg/dl (7-17); Calcium 10.6 mg/dl (8.4-10.2); Carbon Dioxide 26 mmol/L (22-30); Chloride 103 mmol/L (98-107); Estimated Creatinine Clearance 26 ml/min; Glucose 104 mg/dl (70-99); Potassium 4.0 mmol/L (3.5-5.1); Sodium 133 mmol/L (135-145); eGFR 44.08
--- NOTE | 2025-06-16 13:05 | HOSPNOTE ---
Hospice referral received. Spoke to granddaughter. They are not interested in hospice. They are interested in palliative care. Information given to Palliative Care BALL WARPER TENDER Niharika. She will make outreach to granddaughter as granddaughter wanted palliative
input while patient is in the hospital. Per granddaughter- overall plan is for rehab and then back to her home in [place] which I made aware was out of our service area for palliative and hospice. CM updated. Hospice will sign off.
[2025-06-16] MEDS: STERILE WATER FOR INJECTION 10 ML IV (13:10)
[2025-06-16] MEDS: FLUSH (NSS) 1 FLUSH IV ×3 (13:10→14:20)
[2025-06-16] MEDS: ROCEPHIN 1000 MG IV (13:11)
[2025-06-16] MEDS: TYLENOL 650 MG PO (14:13)
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
[2025-06-16] MEDS: ANUSOL HC RECTAL (20:16)
[2025-06-16] MEDS: DESYREL 50 MG PO (22:19)
[2025-06-16] MEDS: MELATONIN 5 MG PO (22:19)
[2025-06-16 23:00] VITALS: BP 123/77
[2025-06-17 04:58] VITALS: BMI 36.5
[2025-06-17] MEDS: TYLENOL 650 MG PO ×2 (05:09→20:42)
[2025-06-17 08:00] VITALS: BP 142/94
[2025-06-17] MEDS: ELIQUIS 5 MG PO ×2 (09:18→20:03)
[2025-06-17] MEDS: COLACE 100 MG PO ×2 (09:18→20:03)
[2025-06-17] MEDS: ANUSOL HC 25 MG RECTAL (09:19)
[2025-06-17] MEDS: LOPRESSOR 25 MG PO ×2 (09:19→19:55)
[2025-06-17] MEDS: MIRALAX 17 GRAMS PO (09:19)
[2025-06-17 09:22] LABS: Hematocrit 40.6 % (37.0-47.0); Hemoglobin 13.1 g/dL (12.0-16.0); Mean Corp Hgb Conc. 32.3 g/dL (33.0-37.0); Mean Corpuscular Volume 92.5 fL (81.0-99.0); Nucleated Red Blood Cells % 0 %; Platelet Count 257 10^3/uL (130-400); Red Cell Dist. Width 13.4 % (11.5-14.5)
[2025-06-17] MEDS: URECHOLINE 25 MG PO ×3 (09:30→17:02)
--- NOTE | 2025-06-17 10:18 | CM ---
Addendum entered by Stephany Ayers 06/17/25 14:12:
CM followed up with [facility] and [facility] SNFs regarding admission. Neither facility has a contract with [employer], so cannot accommodate admission.
CM sent an email to pt's Granddaughter to make her aware that additional facliities will need to be considered. Awaiting response for other facilities she would like to have considered.
Original Note:
CM met with Dr. Terry, Palliaitive Care, to discuss pt/family goals for care. We spoke with Charley's granddaughter, who is an RN, to identify the goals of care. Dr. Terry had spoken with pt's son prior to our meeting, and son is on board with the
goals stated by pt's granddaughter, Viola Goetz, which are SNF rehab with PT/OT as pt is able, DNR, DNI and comfort care. Pt has not been sleeping, and aggitated due to lack of sleep. Zyprexa ordered 06/16/2025 to assist with sleep
schedule. [place] is the primary goal for discharge; [facility] (Special Care Program) would be second choice for discharge if [facility] does not have an available bed. Viola is aware that Palliative Care does not cover the area where
Charley lives.
Granddaughter can be contacted via telephone at [phone] or via email:
Plan: [facility] to [facility]. Authorization from [facility] will be required prior to transfer to SNF.
[2025-06-17 10:58] LABS: Blood Urea Nitrogen 28 mg/dl (7-17); Calcium 10.3 mg/dl (8.4-10.2); Carbon Dioxide 28 mmol/L (22-30); Chloride 104 mmol/L (98-107); Estimated Creatinine Clearance 30 ml/min; Glucose 105 mg/dl (70-99); Potassium 4.1 mmol/L (3.5-5.1); Sodium 136 mmol/L (135-145); eGFR 48.94
--- NOTE | 2025-06-17 11:28 | W.CON.PAL ---
Consultation
-
Date/Time Consultation Requested: 06/16/25
Date/Time Consultation Performed: 06/17/25
Requesting Provider: Dr Alphonso James
Performing Provider: Dr Terry
Reason for Consult: Goals of Care Discussion
Primary Diagnosis: CHF
Related Diagnosis: Afib with RVR, Acute uriary retention
Consult Requested By: Patient's Family
Reason for Admission
Illness Course/HPI
84 yo woman with A fib, LV hypertrophy, large renal cyst with constipation and urinary retention, poor sleep as well as worsening anxiety/agitation.
As per primary team, Pt grand-daughter had requested Palliative evaluation.
Pt since hospital admission has continued with poor sleep, day time reversal and agitation, she was seen by psych yesterday with recommendation for zyprexa.
Today she is very sleepy at time of my visit but able to rouse, she denies anorexia, stated appetite good, denies pain and has no SOB, she was not abkle to provide much info but while awake was able to enjoy jokes shared.
Functional Status
Pt requires assistance with ADL, son used to assist her at home and they had everything set up o one floor and she would transfer with assistance, Pt has been seen here by PT and recommendations made for SNF.
Goals of Care Discussion
Patient Goals
POA son and grand-daughter are clear,DNR/DNI, no feeding tubes, no HD, no aggressive treatment, they want her comfortable, if she declines goal will be to be home and pass naturally.
Pain & Symptom Assessment
Patient Symptoms
Patient Symptoms: Agitation and Insomnia
[place] Symptom Scale 0=none, 10=worst
Pain: 0
Drowsy: 8 (very drowsy, pt unable to give scale to any of the symptoms )
Objective Data
-
Objective Data:
Vital Signs
Temp Pulse Resp BP Pulse Ox
97.4 F 72 20 142/94 98
06/17/25 08:00 06/17/25 08:00 06/17/25 08:00 06/17/25 08:00 06/17/25 08:00
Laboratory Results
06/17/25 09:11
06/17/25 09:11
Total Protein 6.2 g/dl (6.3-8.2) L 06/10/25 16:10
Albumin 3.9 g/dl (3.5-5.0) 06/10/25 16:10
Urine Color Yellow 06/14/25 04:20
Urine Clarity Slightly cloudy (Clear) 06/14/25 04:20
Urine pH 6.0 (5.0-9.0) 06/14/25 04:20
Ur Specific Platter 1.015 (<1.030) 06/14/25 04:20
Urine Ketones Negative (Negative) 06/14/25 04:20
Urine Bilirubin Negative (Negative) 06/14/25 04:20
Palliative Performance Scale
Palliative Performance Scale:
PPS Level Ambulation Activity & Evidence of Disease Self Care Intake Conscious Level
100% Full Normal Activity & Work; Full Intake Full
No Evidence of Disease
90% Full Normal Activity & Work; Full Normal Full
Some Evidence of Disease
80% Full Normal Activity with Effort Full Normal or Full
Some Evidence of Disease Reduced
70% Reduced Unable Normal Job/Work Full Normal or Full
Significant Disease Reduced
60% Reduced Unable Hobby/Housework Occasional Normal or Full or Confusion
Significant Disease Assistance Reduced
50% Mainly Sit/Lie Unable to do Any Work Considerable Normal or Full or Confusion
Extensive Disease Assistance Req'd Reduced
40% Mainly in Bed Unable to do Most Activity Mainly Assistance Normal or Full or Drowsy;
Extensive Disease Reduced +/- Confusion
30% Totally Bed Unable to do Any Activity Total Care Normal or Full or Drowsy;
Bound Extensive Disease Reduced +/- Confusion
20% Totally Bed Bound Unable to do Any Activity Total Care Minimal to Full or Drowsy;
Extensive Disease Sips +/- Confusion
10% Totally Bed Bound Unable to do Any Activity Total Care Mouth Care Drowsy or Coma;
Extensive Disease Only +/- Confusion
0%
PPS Score Level:
50%
Palliative Performance Score Response
Palliative Performance Score Response: 50%
Physical Exam
-
General: No Apparent Distress, Comfortable and Other (very deowsy but able to rouse for short periods)
HEENT: Normocephalic and Atraumatic
Respiratory: Clear to Auscultation and Non Labores Respirations
Cardiac: Regular Rhythm and S1/S2
Skin: Warm and Dry
Neuro: Nonfocal/Grossly Intact and Other (unable to maintain alertness for a couple minutes, oriented to self, place and month, no myoclonus. Power globally reduced.lo)
Psych: Calm (not agitated)
Assessment / Plan
-
Assessment/Plan:
82 YO F with A fib,urinary retention and constipation found with a large renal cyst who has had a steady decline in last couple months.
Discussion with Pt, son and grand-daughter( Pt could not fully participate on account of drowsiness), goals of acre discussed, asked what family is hoping for, short term and skilled nursing goals.
Pt has a POA already and it is Son who was at bedside, he and grand-daughter shared that goal is to avoid aggressive procedures and treatments, they will go to hospitals for treatment and consider each as it occurs, they are however clear on
DNR/DNI, no HD, no PEG tubes. They are hoping she gets ' some functionality back from the SNF stay but if he is unable they are interested in having her home as long as it is safe, at present they do not have resources in place at home for such but
will ensure they have what makes home safe before sending her home at that time.
Care Reviewed
Data Reviewed
Medical Tests: I reviewed
Reviewed with: Family and Other (Collaborated with CM and placed joint call to grand-daughter)
--- NOTE | 2025-06-17 11:51 | W.PN.HOSP.TC ---
Today's Communication/Plan
-
Discharge planning
Assessment / Plan
Assessment / Plan
Physical exam:
General: Well Developed, Well Nourished and No Apparent Distress
HEENT: Normocephalic, Atraumatic and Moist Mucous Membranes
Respiratory: Clear to Auscultation; Negative Wheezes, Rales or Rhonchi
Cardiac: Regular Rhythm and S1/S2
GI: Soft, Nontender and Nondistended
Musculoskeletal: No Clubbing, No Cyanosis and No Edema
Neuro: Awake, Alert and Oriented
Psych: Calm
A/P:
Acute Urinary Retention, possibly related to constipation/displaced colon in setting of large renal cyst
-Roberts catheter placed in emergency department
- UA does suggest UTI;no hematuria
- Appreciate urology input who recommends treating constipation and starting on bethanechol. Ongoing voiding trial-failed Roberts catheter back in place. Voiding trial again in rehab. Physical therapy treatments and constipation treatments
- Blood in the Roberts bag noted but the catheter urine currently is clear. Unclear of traumatic. Will keep an eye on it for now. Patient is on Eliquis which would continue if the urine remains clear.
- Started on antibiotics
- Discussed with son at bedside again today on 06/17
Possible UTI
Continue IV ceftriaxone and will change to oral tomorrow
Urine culture pansensitive E. coli
MAGO - raise in Cr noted . Doubt obstructive uropathy -follow draining well. No extrarenal losses. Not sure about oral intake. BUN is up. Creatinine trending down slightly today off IV fluids.
Large Right Renal Cyst
- Recommends no intervention by urology
Constipation, suspect related to displacement of colon due to large renal cyst
- Continue with Colace and MiraLAX. Advise daily bowel movement going forward for now.
Elevated Troponin
-Reviewed prior records for [place] which also revealed elevated troponin, possibly chronically elevated
-Patient is without chest pain at present time
-Continue to monitor
Elevated BNP
-obtained a chest x-ray yesterday and unremarkable
-Patient without clinical symptoms of heart failure at this time
-Echo May 2025: Severely increased wall thickness consistent with severe concentric hypertrophy. Left ventricular ejection fraction 55-60%
-Continue low sodium diet
-Monitor Daily Weights
Atrial Fibrillation, seems to be persistent at this point in time
-Continue Eliquis for anticoagulation
-Continue metoprolol for rate control
Dementia
-Patient with prior history of hospital acquired delirium and agitation - Monitor for mood/behavior changes during hospitalization
-Continue Zyprexa PRN
- No behavioral disturbance
Insomnia
-Continue trazodone
-Add melatonin
DVT proph: Eliquis
Code Status: DNR
PT/OT eval-recommend SNF and granddaughter is agreeable.
Son and granddaughter wanted to have palliative care consult and we had palliative care evaluated the patient today and plan is to continue nonaggressive management without escalating care. Psychiatry consulted and evaluated patient as well.
Hospice evaluated the patient as well.
implementation project manager for discharge disposition
Anticipated Discharge: Today
Subjective/Interval History
-
Date of Service: June 17, 2025
Patient sleeping this morning. No chest pain or shortness of breath. Afebrile
Objective Data
-
Labs:
Laboratory Results
06/17/25
09:11
WBC 8.9
Hgb 13.1
Hct 40.6
Plt Count 257
Sodium 136
Potassium 4.1
Chloride 104
Carbon Dioxide 28
BUN 28 H
Creatinine 1.1 H
Glucose 105 H
Calcium 10.3 H
Vital Signs:
Vital Signs
Temp Pulse Resp BP Pulse Ox
97.4 F 72 20 142/94 98
06/17/25 08:00 06/17/25 08:00 06/17/25 08:00 06/17/25 08:00 06/17/25 08:00
I&O
06/16/25 06/17/25 06/18/25
06:59 06:59 06:59
Intake Total 1260 / 1260 780 / 780
Output Total 1550 / 1550 1950 / 1950
Balance -290 / -290 -1170 / -1170
[2025-06-17] MEDS: FLUSH (NSS) IV ×2 (13:01→13:02)
[2025-06-17] MEDS: STERILE WATER FOR INJECTION 10 ML IV (13:13)
[2025-06-17] MEDS: ROCEPHIN 1000 MG IV (13:13)
--- NOTE | 2025-06-17 13:27 | W.PN.UPDATE ---
Update Note
Progress Note Update
pt seen, discussed with nurse and son. had tried to get up from chair while son nearby; he was able to redirect her to bed. Pt states 'it just came over me, my body said to get up'. Not the best night's sleep. Will try increasing trazodone to get
better sedation at night.
[2025-06-17 15:11] VITALS: BP 107/66
[2025-06-17] MEDS: ANUSOL HC RECTAL (20:19)
[2025-06-17] MEDS: DESYREL 100 MG PO (21:33)
[2025-06-17] MEDS: MELATONIN 5 MG PO (21:34)
[2025-06-17] MEDS: ZYPREXA 2.5 MG PO (21:34)
[2025-06-17 23:00] VITALS: BP 136/78
[2025-06-18 06:00] VITALS: BMI 36.4
[2025-06-18 07:30] VITALS: BP 140/86
[2025-06-18] MEDS: COLACE 100 MG PO ×2 (08:50→19:41)
[2025-06-18] MEDS: MIRALAX 17 GRAMS PO (08:50)
[2025-06-18] MEDS: ELIQUIS 5 MG PO ×2 (08:50→19:41)
[2025-06-18] MEDS: LOPRESSOR 25 MG PO (08:50)
[2025-06-18] MEDS: ANUSOL HC RECTAL ×2 (08:51→19:40)
--- NOTE | 2025-06-18 09:01 | W.PN.HOSP.TC ---
Today's Communication/Plan
-
Antibiotics. Discharge planning
Assessment / Plan
Assessment / Plan
Physical exam:
General: Chronically ill
HEENT: Normocephalic, Atraumatic and Moist Mucous Membranes
Respiratory: Clear to Auscultation; Negative Wheezes, Rales or Rhonchi
Cardiac: Regular Rhythm and S1/S2
GI: Soft, Nontender and Nondistended
Musculoskeletal: No Clubbing, No Cyanosis and No Edema
Neuro: Awake, Alert and Oriented, no neurological deficit
Psych: Calm
A/P:
Acute Urinary Retention, possibly related to constipation/displaced colon in setting of large renal cyst
-Roberts catheter placed in emergency department
- UA does suggest UTI;no hematuria
- Appreciate urology input who recommends treating constipation and starting on bethanechol. Ongoing voiding trial-failed Roberts catheter back in place. Voiding trial again in rehab. Physical therapy treatments and constipation treatments
- Blood in the Roberts bag noted but the catheter urine currently is clear. Unclear of traumatic. Will keep an eye on it for now. Patient is on Eliquis which would continue if the urine remains clear.
- Continue on antibiotics
- Discussed with son at bedside again today on 06/18
- Plan to go to SNF-case management working on discharge disposition
UTI
IV ceftriaxone today and change to oral cephalexin for 3 more days to complete a 5 days course.
Urine culture pansensitive E. coli
MAGO - raise in Cr noted . Doubt obstructive uropathy -follow draining well. No extrarenal losses. Not sure about oral intake. BUN is up. Creatinine trending down slightly today off IV fluids.
Large Right Renal Cyst
- Recommends no intervention by urology
Constipation, suspect related to displacement of colon due to large renal cyst
- Continue with Colace and MiraLAX. Advise daily bowel movement going forward for now.
Elevated Troponin
-Reviewed prior records for [place] which also revealed elevated troponin, possibly chronically elevated
-Patient is without chest pain at present time
-Continue to monitor
Elevated BNP
-obtained a chest x-ray yesterday and unremarkable
-Patient without clinical symptoms of heart failure at this time
-Echo May 2025: Severely increased wall thickness consistent with severe concentric hypertrophy. Left ventricular ejection fraction 55-60%
-Continue low sodium diet
-Monitor Daily Weights
Atrial Fibrillation, seems to be persistent at this point in time
-Continue Eliquis for anticoagulation
-Continue metoprolol for rate control
Dementia
-Patient with prior history of hospital acquired delirium and agitation - Monitor for mood/behavior changes during hospitalization
-Continue Zyprexa PRN
- No behavioral disturbance
Insomnia
-Continue trazodone
-Add melatonin
DVT proph: Eliquis
Code Status: DNR
Time spent 35 minutes
Anticipated Discharge: Today
Subjective/Interval History
-
Date of Service: June 18, 2025
Patient was sleeping this morning. Son tells me that she may have slept well last night although increased doses of sleeping pills by psychiatry. Afebrile
Objective Data
-
Vital Signs:
Vital Signs
Temp Pulse Resp BP Pulse Ox
98.3 F 83 18 140/86 99
06/18/25 07:30 06/18/25 07:30 06/18/25 07:30 06/18/25 07:30 06/18/25 07:30
I&O
06/17/25 06/18/25 06/19/25
06:59 06:59 06:59
Intake Total 780 / 780
Output Total 1949 / 1949 1050 / 1050
Balance -1170 / -1170 -1050 / -1050
[2025-06-18] MEDS: URECHOLINE 25 MG PO ×3 (09:34→18:05)
[2025-06-18 11:09] VITALS: BP 138/97; PULSE 77; O2SAT 98
--- NOTE | 2025-06-18 11:54 | W.PN.UPDATE ---
Update Note
Progress Note Update
patient seen chart reviewed. spoke to nursing and to her son who is at bedside. the patient seemed a little sleepy but she did wake up for a few minutes though was not really engaged in conversation with me for the most part although i did ask some
simple questions. son reported that if i came a few minutes earlier i would have seen her in a rather disgruntled mood as she wanted to get up and walk. i did explain to her why that would not be advisable given the potential for falling. nursing
does feel she is better with current meds zyprexa melatonin and trazodone at hs. w trazodone need to watch for orthostasis. plan i am told is snf. no changes made today. will follow
--- NOTE | 2025-06-18 13:37 | CM ---
Addendum entered by Nisha Brown 06/18/25 16:41:
spoke with grand-daughter Viola request referral [facility]-sent in [facility]
Original Note:
Patient seen at bedside with son Narciso
IA Completed
son lives with patient in an apartment, elevator access
PLOF: independent with walker
DME: Walker
Was current with [facility]
PT rec SNF - [facility]ALS [facility] (declined payor not accepted)
LM with grand-daughter, spoke with son regarding additional referrals, no preference
additional referrals to [facility]
will need to obtain ins auth once bed secured
PLAN: SNF, pending acceptance/bed availability - will need ins auth once bed secured
[2025-06-18] MEDS: STERILE WATER FOR INJECTION 10 ML IV (14:58)
[2025-06-18] MEDS: ROCEPHIN 1000 MG IV (14:58)
[2025-06-18] MEDS: FLUSH (NSS) IV ×2 (14:58)
--- NOTE | 2025-06-18 15:40 | PTCARENOTE ---
patient sitting in chair most of day, ambulating with assist x1 with rolling walker in hallway and BR, son here to assist at times. poor PO intake, PO's encouraged, Roberts maintained, vss, will continue to monitor.
[2025-06-18 16:00] VITALS: BP 155/87
[2025-06-18] MEDS: LOPRESSOR PO (19:41)
[2025-06-18] MEDS: DESYREL 100 MG PO (19:51)
[2025-06-18] MEDS: MELATONIN 5 MG PO (19:51)
[2025-06-18] MEDS: ZYPREXA 2.5 MG PO (19:51)
[2025-06-18 23:02] VITALS: BP 135/89
--- NOTE | 2025-06-19 05:30 | PTCARENOTE ---
Pt previously located in room further from nurse's station. Pt observed to be impulsive, frequently attempting to get out of chair unassisted and ambulate while taylor catheter bag was placed on side of chair, creating risk of accidental removal.
Patient assessed as high fall risk. For increased safety, pt transferred to room across from nurse's station for closer monitoring, and 1:1 observation ordered. Pt's granddaughter, Viola, called requesting update. This RN explained safety
concerns, room transfer, and initiation of 1:1. Granddaughter became upset, raised voice, and stated, 'You guys moving her is what is making her act like this.' This RN explained that pt has demonstrated this behavior since admission. Granddaughter
continued to express frustration. wash house supervisor notified and spoke with granddaughter regarding concerns. Safety precautions ongoing.
[2025-06-19] MEDS: MIRALAX 17 GRAMS PO (07:42)
[2025-06-19] MEDS: ANUSOL HC RECTAL ×2 (07:42→19:29)
[2025-06-19] MEDS: COLACE 100 MG PO ×2 (07:43→19:35)
[2025-06-19] MEDS: ELIQUIS 5 MG PO ×2 (07:43→19:34)
[2025-06-19] MEDS: LOPRESSOR 25 MG PO ×2 (07:43→19:32)
[2025-06-19] MEDS: KEFLEX 500 MG PO ×2 (07:52→19:33)
[2025-06-19] MEDS: URECHOLINE 25 MG PO ×3 (08:15→17:00)
--- NOTE | 2025-06-19 10:31 | W.PN.HOSP.TC ---
Today's Communication/Plan
-
Hospice nurse reevaluation today. Psychiatry reeval.
Assessment / Plan
Assessment / Plan
Physical exam:
General: Chronically ill
HEENT: Normocephalic, Atraumatic and Moist Mucous Membranes
Respiratory: Clear to Auscultation; Negative Wheezes, Rales or Rhonchi
Cardiac: Regular Rhythm and S1/S2
GI: Soft, Nontender and Nondistended
Musculoskeletal: No Clubbing, No Cyanosis and No Edema
Neuro: Awake, Alert and Oriented, no neurological deficit
Psych: Calm
A/P:
Dementia
-Patient with prior history of hospital acquired delirium and agitation - Monitor for mood/behavior changes during hospitalization
-Continue Zyprexa scheduled
- Some behavioral disturbance and required one-to-one observation so we will await for psychiatry reevaluation.
- Discussed with son at bedside again today on 06/19
-Discussed with hospice nurse at bedside. Discussed with granddaughter as well over the phone.
- Plan to go to SNF-case management working on discharge disposition
Acute Urinary Retention, possibly related to constipation/displaced colon in setting of large renal cyst
-Roberts catheter placed in emergency department
- UA does suggest UTI;no hematuria
- Appreciate urology input who recommends treating constipation and starting on bethanechol. Ongoing voiding trial-failed Roberts catheter back in place. Voiding trial again in rehab. Physical therapy treatments and constipation treatments
- Blood in the Roberts bag noted but the catheter urine currently is clear. Unclear of traumatic. Will keep an eye on it for now. Patient is on Eliquis which would continue if the urine remains clear.
- Continue on antibiotics
UTI
Continue oral cephalexin to complete a 5 days course.
Urine culture pansensitive E. coli
MAGO - raise in Cr noted . Doubt obstructive uropathy -follow draining well. No extrarenal losses. Not sure about oral intake. BUN is up. Creatinine trended down slightly off IV fluids.
Large Right Renal Cyst
- Recommends no intervention by urology
Constipation, suspect related to displacement of colon due to large renal cyst
- Continue with Colace and MiraLAX. Advise daily bowel movement going forward for now.
Elevated Troponin
-Reviewed prior records for [place] which also revealed elevated troponin, possibly chronically elevated
-Patient is without chest pain at present time
-Continue to monitor
Elevated BNP
-obtained a chest x-ray yesterday and unremarkable
-Patient without clinical symptoms of heart failure at this time
-Echo May 2025: Severely increased wall thickness consistent with severe concentric hypertrophy. Left ventricular ejection fraction 55-60%
-Continue low sodium diet
-Monitor Daily Weights
Atrial Fibrillation, seems to be persistent at this point in time
-Continue Eliquis for anticoagulation
-Continue metoprolol for rate control
Insomnia
-Continue trazodone at increased doses
-Added melatonin
DVT proph: Eliquis
Code Status: DNR
Time spent 35 minutes
Anticipated Discharge: 24 - 48 hours
Subjective/Interval History
-
Date of Service: June 19, 2025
Patient apparently required one-to-one observation to his overnight. She seems to be calm this morning. Discussed with son at bedside and granddaughter over the phone and hospice nurse who happens to be passing by by the time of my evaluation.
Objective Data
-
Vital Signs:
Vital Signs
Temp Pulse Resp BP Pulse Ox
98.1 F 87 18 156/96 95
06/18/25 23:02 06/19/25 07:43 06/18/25 23:02 06/19/25 07:43 06/18/25 23:02
I&O
06/18/25 06/19/25 06/20/25
06:59 06:59 06:59
Intake Total 1040 / 1040
Output Total 1050 / 1050 1600 / 1600
Balance -1050 / -1050 -560 / -560
--- NOTE | 2025-06-19 11:20 | HOSPNOTE ---
Spoke at length with vanessa, and we will keep patient on comfort and focus on decreasing agitation and discontinuing the 1:1. Comfort care will be started today. If patient declines and meets inpatient criteria for hospice we will admit.
Attending and CM aware.
--- NOTE | 2025-06-19 12:32 | W.PN.UPDATE ---
Update Note
Progress Note Update
patient seen chart reviewed. spoke with dr landeros. granddaughter at bedside. the patient had a difficult evening last night . she was agitated often. her room was moved closer to nurse's station and she was placed on one to one. she was calm when i
saw her today and much more interactive with me today than she had been yesterday. she told me how many kids she had...their names...and gave me the names of her great grandkids and her grandson in law. she was oriented to place. she initially
told me it was 195 ...and then said 1926 but realized the 25 was correct. she expressed interest in what she was eating for lunch. she could not remember how she felt last night. she had no memory of the agitation she had experienced.
granddaughter has spoken to hospice re placing mrs triana on hospice. dr landeros mentioned patient is not terminal. granddaughter said something about 'terminal agitation' and that she knows this is what her gm would want. son is actual poa and gd
says son is on the same page. for now will change the zyprexa order to 4 pm with another prn for agitation. will discuss with dr landeros and ms amanda walton.
[2025-06-19 15:00] VITALS: BP 115/74
--- NOTE | 2025-06-19 15:13 | CM ---
Initial plan of care today was located a SNF. [facility] can take her.
[facility] and this CM spoke this am . As agreed by family, pt changed to Comfort care. She is on 1:1 for agitation.
Viola requested this CM find out how much [facility] would cost private pay with Hospice. Alisson Shrestha said $570 a day with 30 days up front at $ 17,100 . Viola notified.
Viola requested a hospice list [id number] where patient lives. Explained that referral are family choice. Viola still requested list . List printed out and left in room.
PLAN Continue on Comfort Care
[2025-06-19 15:34] VITALS: BP 115/74; PULSE 92
[2025-06-19] MEDS: ZYPREXA 2.5 MG PO (16:32)
[2025-06-19] MEDS: MELATONIN 5 MG PO (21:04)
[2025-06-19] MEDS: DESYREL 100 MG PO (21:04)
[2025-06-19 22:00] VITALS: BP 137/78
--- NOTE | 2025-06-19 23:00 | PTCARENOTE ---
Pt's granddaughter remaining at bedside overnight. Granddaughter presented to nurses' station requesting valium for pt to assist with sleep. This RN informed granddaughter that pt had already received scheduled nighttime trazodone and melatonin for
sleep. Explained that PRN valium is ordered only for agitation when patient is unable to take oral medications. Pt was not agitated at this time and remained able to take PO medications. Granddaughter responded, 'Oh okay so I guess we will just wait
until she loses her mind before we actually do something for her then.' Education provided regarding PRN medication parameters. Plan of care ongoing.
[2025-06-19] MEDS: TYLENOL 650 MG PO (23:29)
[2025-06-20] MEDS: RISPERDAL M-TAB (ORALLY DISINTEGRATING) 0.25 MG PO (00:17)
--- NOTE | 2025-06-20 00:20 | PTCARENOTE ---
Another nurse reported to this RN that pt's granddaughter was approaching the nurse's station, being passive-aggressive, and rude toward staff while this RN was admitting another patient. MOTH PROOFER, printing and stamping supervisor, and security were notified of behavior.
Randy Cleaning, NICHOLE placed order for one-time dose of risperidone. Refer to MAR. Granddaughter making side comments to this RN regarding another nurse administering tylenol while this RN was unavailable, at which time this RN explained I had been
occupied with a new admission. Plan of care ongoing.
--- NOTE | 2025-06-20 00:27 | PTCARENOTE ---
Patient's granddaughter came out to [address] asking for her nurse. Primary RN, Lo Smalls, in another patient's room. Granddaughter requesting Tylenol for patient. This RN walked in room to give Tylenol to patient, Granddaughter immediately stated
to this RN 'you need to call the doctor'. This RN reminded granddaughter that I was not her grandmothers nurse and did not have knowledge of patient current condition. Granddaughter then said in a loud tone that 'a doctor needs to clarify theses
meds with me.' This RN notified primary RN, NICHOLE, and nursing claims supervisor. NICHOLE Moncada stated she would come to speak to granddaughter after reviewing chart. Granddaughter then came out to [address] and yelled that 'you need to make a note that my
grandmother needs meds adjusted' Primary RN not at nurses station at this time. Granddaughter yelled at this RN 'to produce her nurse'. This RN asked granddaughter to not speak this way to staff who are trying to help. Granddaughter then stated in a
loud tone 'are you kidding me you didn't even give her water with the Tylenol you gave'. NICHOLE came to unit to speak with granddaughter. Security, nursing claims supervisor, and foam charger all made aware of events.
--- NOTE | 2025-06-20 00:35 | W.PN.UPDATE ---
Update Note
Progress Note Update
-Reported by the nursing staff that the granddaughter would like to speak to the covering provider.
-Patient noted sitting calm on a chair with one of the nursing staff. Spoke with the granddaughter regarding the meds and she is requesting to give the patient Valium as sleeping aid.
-Patient already received trazodone and melatonin for tonight and she was calm during my time on the floor. Explained to the granddaughter that Valium is not sleeping aid and ordered for the agitation.
-Granddaughter requested to have have the patient on comfort care. I explained what is comfort care which is probably not appropriate for her case at the mean time.
-Will give one time order of Risperdal 0.25mg.
- later relations director purple called as the patient tried to stand up and start walking. Patient is getting agitated when the staff try to redirect. Will order rigoberto chair for the patient safety.
[2025-06-20] MEDS: ZYPREXA 2.5 MG PO (01:19)
--- NOTE | 2025-06-20 01:45 | PTCARENOTE ---
Granddaughter stating to this RN, 'I can't stay here anymore. She is not falling asleep and I don't think my presence can help her,' and elected to leave for the night. Following granddaughter's departure, pt observed to be jumping out of chair and
yelling at this RN, stating, 'You need to get fucking help. You won't let me stand up.' This RN attempted to calm pt and explained it was unsafe for her to ambulate with taylor catheter attached to chair due to risk of accidental removal and injury.
Pt became increasingly agitated, yelling and clenching fists. Code Purple called. PRN zyprexa administered. Pt continued exhibiting impulsive and unsafe behaviors. FOOTBALL COACH made aware. Chasity-chair ordered for pt safety. Plan of care ongoing.
--- NOTE | 2025-06-20 04:00 | PTCARENOTE ---
Pt banging fists on table of rigoberto-chair and screaming for her son. This RN discussing with pt how this behavior is inappropriate. Pt stated to this RN that 'I act like this because I know I can get my way.' Pt able to tell me name, , year, and
place. Multiple other staff present while this was said.
[2025-06-20 07:16] VITALS: BP 154/99
--- NOTE | 2025-06-20 07:56 | PTCARENOTE ---
Addendum entered by Alla Perry RN 06/20/25 13:38:
at 0756. I zoila texted Dr. James, Dr. Flores and Marylou Maldonado, hospice community liaison and made them aware of events overnight that occurred. pt's granddaughter wanting to make decisions for patient, though was told son is patient's POA. Also, patient is
not terminal per Dr. James and End of life System assessment medications /comfort care was initiated yesterday. Dr. James confirmed patient is not terminal and not candidate for in-patient hospice. at 0808. comfort care measures/End of life system
assessment medications d/c'd by Dr. James. will continue to monitor.
Original Note:
at 0756. I zoila texted Dr. James, Dr. Flores and Marylou Maldonado, hospice community liaison and made them aware of events overnight that occurred. pt's granddaughter wanting to make decisions for patient, though was told son is patient's POA. Also, patient is
not terminal per Dr. James and End of life System assessment medications /comfort care was initiated yesterday. at 0808. comfort care measures/End of life system assessment medications d/c'd by Dr. James. will continue to monitor.
--- NOTE | 2025-06-20 08:00 | PTCARENOTE ---
granddaughter here and requesting patient be taken out of Chasity chair and she will be visiting with patient. patient transferred to regular chair with bed alarm. informed granddaughter if she leaves to let nursing staff know, will continue to
monitor.
[2025-06-20] MEDS: KEFLEX 500 MG PO ×2 (08:11→21:41)
[2025-06-20] MEDS: ELIQUIS 5 MG PO ×2 (08:11→21:41)
[2025-06-20] MEDS: LOPRESSOR 25 MG PO ×2 (08:11→21:41)
[2025-06-20] MEDS: COLACE 100 MG PO (08:12)
[2025-06-20] MEDS: ANUSOL HC RECTAL ×2 (08:13→21:59)
[2025-06-20] MEDS: MIRALAX 17 GRAMS PO (08:13)
[2025-06-20] MEDS: URECHOLINE 25 MG PO ×3 (08:28→17:05)
--- NOTE | 2025-06-20 10:31 | CM ---
Pt remains on 1:1 for agitation.
She is on Comfort care.
Spoke with Anna she said patient will go home to her house at [address] [facility] [address] [facility] [address] with 0 steps to enter .
She requested phone numbers for Hospice agency.
Pt will need ambulance
PLAN Continue on Comfort Retirement with hospice
--- NOTE | 2025-06-20 10:48 | W.PN.HOSP.TC ---
Today's Communication/Plan
-
See plan.
Assessment / Plan
Assessment / Plan
Physical exam:
General: Chronically ill
HEENT: Normocephalic, Atraumatic and Moist Mucous Membranes
Respiratory: Clear to Auscultation; Negative Wheezes, Rales or Rhonchi
Cardiac: Regular Rhythm and S1/S2
GI: Soft, Nontender and Nondistended
Musculoskeletal: No Clubbing, No Cyanosis and No Edema
Neuro: Awake, Alert and Oriented, no neurological deficit
Psych: Calm
A/P:
Dementia
-Patient with prior history of hospital acquired delirium and agitation - Monitor for mood/behavior changes during hospitalization
-Continue Zyprexa scheduled
- Some behavioral disturbance and required one-to-one observation
-We had a family meeting today on 06/20. Discussed with son and granddaughter and explained that she is not terminal and she is not going to inpatient hospice, but with good face challenges in terms of dementia management so we will reevaluate over
the next 24 to 48 hours. Family is interested in taking her home if manageable so we will reevaluate in that timeframe. In my opinion, no need for ethics consult at the moment but can reevaluate down the road.
-Discussed with psychiatry via Alma text.
-Discussed with hospice nurse over the phone today
-Discussed with attending RN
Acute Urinary Retention, possibly related to constipation/displaced colon in setting of large renal cyst
-Roberts catheter placed in emergency department
- UA does suggest UTI;no hematuria
- Appreciate urology input who recommends treating constipation and starting on bethanechol. Ongoing voiding trial-failed Roberts catheter back in place. Voiding trial again in rehab. Physical therapy treatments and constipation treatments
- Blood in the Roberts bag noted but the catheter urine currently is clear. Unclear of traumatic. Will keep an eye on it for now. Patient is on Eliquis which would continue if the urine remains clear.
- Continue on antibiotics
UTI
Continue oral cephalexin to complete a 5 days course.
Urine culture pansensitive E. coli
MAGO - raise in Cr noted . Doubt obstructive uropathy -follow draining well. No extrarenal losses. Not sure about oral intake. BUN is up. Creatinine trended down slightly off IV fluids.
Large Right Renal Cyst
- Recommends no intervention by urology
Constipation, suspect related to displacement of colon due to large renal cyst
- Continue with Colace and MiraLAX. Advise daily bowel movement going forward for now.
Elevated Troponin
-Reviewed prior records for [facility] which also revealed elevated troponin, possibly chronically elevated
-Patient is without chest pain at present time
-Continue to monitor
Elevated BNP
-obtained a chest x-ray yesterday and unremarkable
-Patient without clinical symptoms of heart failure at this time
-Echo May 2025: Severely increased wall thickness consistent with severe concentric hypertrophy. Left ventricular ejection fraction 55-60%
-Continue low sodium diet
-Monitor Daily Weights
Atrial Fibrillation, seems to be persistent at this point in time
-Continue Eliquis for anticoagulation
-Continue metoprolol for rate control
Insomnia
-Continue trazodone at increased doses
-Added melatonin
DVT proph: Eliquis
Code Status: DNR
Time spent 65 minutes
Anticipated Discharge: 24 - 48 hours
Subjective/Interval History
-
Date of Service: June 20, 2025
Patient calm this morning. Overnight events noticed. Discussed with family at bedside.
Objective Data
-
Vital Signs:
Vital Signs
Temp Pulse Resp BP Pulse Ox
97.9 F 91 16 154/98 98
06/20/25 07:16 06/20/25 08:11 06/20/25 07:16 06/20/25 08:11 06/20/25 07:16
I&O
06/19/25 06/20/25 06/21/25
06:59 06:59 06:59
Intake Total 1040 / 1040 1080 / 1080
Output Total 1600 / 1600 470 / 470
Balance -560 / -560 610 / 610
--- NOTE | 2025-06-20 11:53 | HOSPNOTE ---
Hospice will sign off since patient will be going home in [place] with hospice which is out of our territory. If we are needed because of patient deteriorating please reach out. We will continue to be available if needed. Attending and CM aware
of plan.
[2025-06-20] MEDS: TYLENOL 650 MG PO ×2 (12:04→21:45)
--- NOTE | 2025-06-20 13:30 | CM ---
Addendum entered by Bridgett Prabhakar RN 06/20/25 13:39:
Spoke with Bertha [facility] # [phone] she said she may need clinical fax if she can not see on care port.
Bertha feels they will be able to accept patient. Will reviewed with dgt DME needs. Bertha will advice family of care companion agency near by.
[facility] [phone] fax [phone] .
Original Note:
Agitation during manufacturing shift supervisor.Patient visiting with family today.
Patient ambulating with walker and CG.
Provided Viola with Hospice near pts home in [place].
Plan is home to [address] [facility] [address] with 0 steps to enter with hospice.
[facility]ola [facility] Referral placed in care port. Will check on acceptance
Pt will need ambulance
PLAN Continue on Comfort Alf with hospice
--- NOTE | 2025-06-20 13:39 | PTCARENOTE ---
at 1200, patient transported via w/c by inpatient nursing aide Kylie Floyd off floor per granddaughters request. Prior to going off unit, patient was medicated with PRN Tylenol for c/o low back. at present, sleeping in chair, granddaughter and son
at bedside, will continue to monitor.
--- NOTE | 2025-06-20 14:04 | W.PN.UPDATE ---
Update Note
Progress Note Update
patient seen chart reviewed. discussed with nursing, ms amanda walton, and dr landeros. spoke privately w patient son and granddaughter and son present in the room when i saw patient. mrs triana was eagerly eating her luncheon tray and was enjoying
it. she was alert and smiled . she was pleasant. she did not really engage in much conversation. family 's plan is to take her home as soon as she seems to be able to be stable in the evening and sleep at night which heretofore has not been the
case. discussed w son and grand d dc of zyprexa which has not been effective and trial of risperdal. one mg q 4 pm and o.5 mg prn up to bid. also family very adamant that she must sleep and they feel valium helpful in the past so will use 5 mg q 8
pm and note effect. grandcarlin who is a nurse says trazodone 100 mg has not helped at all. daughter in law is going to sleep here tonight to see if she can soothe her grandmother through the evening and night. family is interested in at home hospice.
patient is not exactly terminal. son and i did discuss the mass in her kidney which could be renal cell ca but he does not wish to pursue a firm dx. he believes the mother he knew before onset of dementia would not have wanted durgery. psych will
follow
[2025-06-20 15:33] VITALS: BP 125/75
[2025-06-20] MEDS: RISPERDAL M-TAB (ORALLY DISINTEGRATING) 1 MG PO (15:41)
[2025-06-20] MEDS: RISPERDAL M-TAB (ORALLY DISINTEGRATING) 0.5 MG PO ×2 (17:08→23:02)
--- NOTE | 2025-06-20 17:59 | PTCARENOTE ---
at 1708, patient with agitation and trying to transfer oob from chair multiple times. has been cooperative and following simple commands and calm while both son and granddaughter here. administered PRN Resperal, will continue to monitor.
[2025-06-20] MEDS: MELATONIN 5 MG PO (21:41)
[2025-06-20] MEDS: VALIUM 5 MG PO (21:41)
[2025-06-20] MEDS: COLACE PO (21:59)
[2025-06-20 22:30] VITALS: BP 137/92
[2025-06-21 04:12] VITALS: BMI 37.6
[2025-06-21 07:48] VITALS: BP 99/73
[2025-06-21] MEDS: MIRALAX PO (09:24)
[2025-06-21] MEDS: COLACE PO ×2 (09:24→21:09)
[2025-06-21] MEDS: TYLENOL 650 MG PO ×3 (09:27→21:43)
[2025-06-21] MEDS: KEFLEX 500 MG PO (09:30)
[2025-06-21] MEDS: ELIQUIS 5 MG PO (09:31)
[2025-06-21] MEDS: ANUSOL HC 25 MG RECTAL (09:31)
[2025-06-21] MEDS: LOPRESSOR PO ×2 (09:31→21:09)
[2025-06-21] MEDS: URECHOLINE 25 MG PO ×3 (09:33→17:53)
[2025-06-21 10:29] VITALS: BP 138/98
--- NOTE | 2025-06-21 11:22 | W.PN.HOSP.TC ---
Today's Communication/Plan
-
Chest x-ray. BNP.
Assessment / Plan
Assessment / Plan
Physical exam:
General: Chronically ill
HEENT: Normocephalic, Atraumatic and Moist Mucous Membranes
Respiratory: Few crackles in the bases; Negative Wheezes, Rales or Rhonchi
Cardiac: Regular Rhythm and S1/S2
GI: Soft, Nontender and Nondistended
Musculoskeletal: No Clubbing, No Cyanosis and presence of bilateral lower extremity edema
Neuro: Awake, Alert and Disoriented, no neurological deficit
Psych: Calm. Agitation on and off in the evening and nighttime
A/P:
Dementia
-Patient with prior history of hospital acquired delirium and agitation - Monitor for mood/behavior changes during hospitalization
-Continue Zyprexa scheduled
- Some behavioral disturbance and required one-to-one observation
-We had a family meeting on 06/20. Discussed with son and granddaughter and explained that she is not terminal and she is not going to inpatient hospice, but with good face challenges in terms of dementia management so we will reevaluate over the
next 24 to 48 hours. Family is interested in taking her home if manageable so we will reevaluate in that timeframe. In my opinion, no need for ethics consult at the moment but can reevaluate down the road.
-Discussed with psychiatry yesterday
-Discussed with hospice nurse over the phone yesterday
-Discussed with attending RN
- Discussed with granddaughter and son at bedside today on 06/21. Discussed with attending RN.
Peripheral edema:
Likely mild volume overload
Obtain chest x-ray and BNP
After above results, might give Lasix IV today.
Acute Urinary Retention, possibly related to constipation/displaced colon in setting of large renal cyst
-Roberts catheter placed in emergency department
- UA does suggest UTI;no hematuria
- Appreciate urology input who recommends treating constipation and starting on bethanechol. Ongoing voiding trial-failed Roberts catheter back in place. Voiding trial again in rehab. Physical therapy treatments and constipation treatments
- Blood in the Roberts bag noted but the catheter urine currently is clear. Unclear of traumatic. Will keep an eye on it for now. Patient is on Eliquis which would continue if the urine remains clear.
- Continue on antibiotics
UTI
Continue oral cephalexin to complete a 5 days course.
Urine culture pansensitive E. coli
MAGO - raise in Cr noted . Doubt obstructive uropathy -follow draining well. No extrarenal losses. Not sure about oral intake. BUN is up. Creatinine trended down slightly off IV fluids.
Large Right Renal Cyst
- Recommends no intervention by urology
Constipation, suspect related to displacement of colon due to large renal cyst
- Continue with Colace and MiraLAX. Advise daily bowel movement going forward for now.
Elevated Troponin
-Reviewed prior records for [place] which also revealed elevated troponin, possibly chronically elevated
-Patient is without chest pain at present time
-Continue to monitor
Elevated BNP
-obtained a chest x-ray yesterday and unremarkable
-Patient without clinical symptoms of heart failure at this time
-Echo May 2025: Severely increased wall thickness consistent with severe concentric hypertrophy. Left ventricular ejection fraction 55-60%
-Continue low sodium diet
-Monitor Daily Weights
Atrial Fibrillation, seems to be persistent at this point in time
-Continue Eliquis for anticoagulation
-Continue metoprolol for rate control
Insomnia
-Continue trazodone at increased doses
-Added melatonin
DVT proph: Eliquis
Code Status: DNR
Total time spent on today's encounter was 52 minutes which included time spent in counseling the patient/family regarding diagnosis and treatment plan as listed above, goals of care, and symptom management. Case was discussed with nursing staff,
specialists, and care coordinators/case management. All labs and imaging personally reviewed by me. Remainder the time spent in detailed review of previous records, lab data, imaging, and other medical provider documentation.
Anticipated Discharge: > 48 hours
Subjective/Interval History
-
Date of Service: June 21, 2025
Did not sleep much last night. Calm this morning. Some peripheral edema.
Objective Data
-
Vital Signs:
Vital Signs
Temp Pulse Resp BP Pulse Ox
97.6 F 95 15 138/98 97
06/21/25 07:48 06/21/25 10:29 06/21/25 07:48 06/21/25 10:29 06/21/25 07:48
I&O
06/20/25 06/21/25 06/22/25
06:59 06:59 06:59
Intake Total 1080 / 1080 480 / 480
Output Total 470 / 470 400 / 400
Balance 610 / 610 80 / 80
[2025-06-21 12:47] VITALS: BP 151/98; PULSE 78; O2SAT 99
[2025-06-21] MEDS: RISPERDAL M-TAB (ORALLY DISINTEGRATING) 1 MG PO (15:13)
[2025-06-21] MEDS: LASIX 40 MG PO (15:13)
[2025-06-21 15:53] VITALS: BP 157/86
--- NOTE | 2025-06-21 16:01 | W.PN.UPDATE ---
Update Note
Progress Note Update
Patient calm now but son who was present told me she had a difficult night apparently with significant agitation. Currently is dosing off .
We discussed possible change to Zyprexa from Risperdal but given the fact that meds were just adjusted yesterday I will stay with the current regime.
Will continue F/U.
[2025-06-21] MEDS: RISPERDAL M-TAB (ORALLY DISINTEGRATING) 0.5 MG PO ×2 (17:53→23:17)
[2025-06-21] MEDS: VALIUM 5 MG PO (19:48)
[2025-06-21] MEDS: ANUSOL HC RECTAL (21:09)
[2025-06-21] MEDS: ELIQUIS PO (21:09)
[2025-06-21] MEDS: KEFLEX PO (21:09)
[2025-06-21] MEDS: MELATONIN 5 MG PO (21:41)
[2025-06-21 23:00] VITALS: BP 104/58
[2025-06-22 06:00] VITALS: BMI 38.0
[2025-06-22] MEDS: TYLENOL 650 MG PO ×2 (06:24→13:17)
--- NOTE | 2025-06-22 06:49 | W.PN.UPDATE ---
Update Note
Progress Note Update
Patient noted with episode of epistaxis (taking Eliquis) HOB elevated and ice applied. Resolved overnight. Grand daughter spent the night with patient.
[2025-06-22 07:00] VITALS: BP 150/110
--- NOTE | 2025-06-22 07:19 | W.PN.HOSP.TC ---
Today's Communication/Plan
-
Psychiatry reevaluation. Discharge planning
Assessment / Plan
Assessment / Plan
Physical exam:
General: Chronically ill
HEENT: Normocephalic, Atraumatic and Moist Mucous Membranes
Respiratory: Few crackles in the bases; Negative Wheezes, Rales or Rhonchi
Cardiac: Regular Rhythm and S1/S2
GI: Soft, Nontender and Nondistended
Musculoskeletal: No Clubbing, No Cyanosis and presence of bilateral lower extremity edema
Neuro: Awake, Alert and Disoriented, no neurological deficit
Psych: Calm. Agitation on and off in the evening and nighttime
A/P:
Dementia
-Patient with prior history of hospital acquired delirium and agitation - Monitor for mood/behavior changes during hospitalization
-On Risperdal, Valium per psychiatry. RN will discuss with psychiatry on rounds if changes needed on current regimen.
- Some behavioral disturbance and had required one-to-one observation. off restraints.
-We had a family meeting on 06/20-->Discussed with son and granddaughter and explained that she is not terminal and she is not going to inpatient hospice, but with do face challenges in terms of dementia management so we will reevaluate over the next
24 to 48 hours. She is also appropriate for continuing outpatient palliative care-see palliative care consult. Family is interested in taking her home if manageable so we will reevaluate in that timeframe. In my opinion, no need for
ethics consult at the moment but can reevaluate down the road if needed. The options for discharge is home with home health versus SNF versus ?outpatient hospice.
-Discussed with psychiatry prior
-Discussed with hospice nurse prior
- Discussed with granddaughter yesterday and son at bedside today on 06/22.
-Discussed with attending RN today
Epistaxis
-Resolved
-Coag studies normal
-Watch while on Eliquis
Peripheral edema:
-Given oral Lasix yesterday but does not appear to need that repeated today.
Acute Urinary Retention, possibly related to constipation/displaced colon in setting of large renal cyst
-Roberts catheter placed in emergency department
- UA does suggest UTI;no hematuria
- Appreciate urology input who recommends treating constipation and starting on bethanechol. Ongoing voiding trial-failed Roberts catheter back in place. Voiding trial again in rehab. Physical therapy treatments and constipation treatments
- Blood in the Roberts bag noted but the catheter urine currently is clear. Unclear of traumatic. Will keep an eye on it for now. Patient is on Eliquis which would continue if the urine remains clear.
- Continue on antibiotics
UTI
Completed a 5 days course of IV and oral antibiotics.
Urine culture pansensitive E. coli
MAGO - raise in Cr noted . Doubt obstructive uropathy -follow draining well. No extrarenal losses. Not sure about oral intake. BUN is up. Creatinine trended down slightly off IV fluids and up after diuretic.
Large Right Renal Cyst
- Recommends no intervention by urology
Constipation, suspect related to displacement of colon due to large renal cyst
- Continue with Colace and MiraLAX. Advise daily bowel movement going forward for now.
Elevated Troponin
-Reviewed prior records for [place] which also revealed elevated troponin, possibly chronically elevated
-Patient is without chest pain at present time
-Continue to monitor
Elevated BNP
-obtained chest x-ray and bnp
-Patient without clinical symptoms of heart failure at this time
-Echo May 2025: Severely increased wall thickness consistent with severe concentric hypertrophy. Left ventricular ejection fraction 55-60%
-Continue low sodium diet
-Monitor Daily Weights
Atrial Fibrillation, seems to be persistent at this point in time
-Continue Eliquis for anticoagulation
-Continue metoprolol for rate control
Insomnia
-Continue trazodone at increased doses
-Added melatonin
DVT proph: Eliquis
Code Status: DNR
Time spent 36 minutes
Anticipated Discharge: 24 - 48 hours
Subjective/Interval History
-
Date of Service: June 22, 2025
Patient agitated last night but calm this morning. No shortness of breath or chest pain. Mild epistaxis overnight but resolved and none this morning.
Objective Data
-
Labs:
Laboratory Results
06/22/25
06:59
WBC Pending
Hgb Pending
Hct Pending
Plt Count Pending
Sodium Pending
Potassium Pending
Chloride Pending
Carbon Dioxide Pending
BUN Pending
Creatinine Pending
Glucose Pending
Calcium Pending
Total Bilirubin Pending
AST Pending
ALT Pending
Alkaline Phosphatase Pending
Vital Signs:
Vital Signs
Temp Pulse Resp BP Pulse Ox
97.5 F 103 18 104/58 96
06/21/25 23:00 06/21/25 23:00 06/21/25 23:00 06/21/25 23:00 06/21/25 23:00
I&O
06/21/25 06/22/25 06/23/25
06:59 06:59 06:59
Intake Total 480 / 480 540 / 540
Output Total 400 / 400 2175 / 2175
Balance 80 / 80 -1635 / -1635
[2025-06-22 07:30] LABS: Hematocrit 36.0 % (37.0-47.0); Hemoglobin 12.1 g/dL (12.0-16.0); Mean Corp Hgb Conc. 33.6 g/dL (33.0-37.0); Mean Corpuscular Volume 92.5 fL (81.0-99.0); Nucleated Red Blood Cells % 0 %; Platelet Count 241 10^3/uL (130-400); Red Cell Dist. Width 13.4 % (11.5-14.5)
[2025-06-22 07:58] LABS: ALT (SGPT) 20 U/L (0-35); AST (SGOT) 22 U/L (14-36); Albumin 3.8 g/dl (3.5-5.0); Alkaline Phosphatase 82 U/L (38-126); Blood Urea Nitrogen 21 mg/dl (7-17); Calcium 10.2 mg/dl (8.4-10.2); Carbon Dioxide 28 mmol/L (22-30); Chloride 101 mmol/L (98-107); Estimated Creatinine Clearance 28 ml/min; Glucose 102 mg/dl (70-99); Magnesium 2.4 mg/dl (1.6-2.3); Potassium 4.4 mmol/L (3.5-5.1); Sodium 133 mmol/L (135-145); Total Protein 6.1 g/dl (6.3-8.2); eGFR 44.08
[2025-06-22] MEDS: ANUSOL HC RECTAL ×2 (08:03→21:09)
[2025-06-22] MEDS: KEFLEX 500 MG PO (08:03)
[2025-06-22] MEDS: LOPRESSOR 25 MG PO ×2 (08:03→21:11)
[2025-06-22] MEDS: ELIQUIS 5 MG PO ×2 (08:03→21:11)
[2025-06-22] MEDS: COLACE PO ×2 (08:04→21:09)
[2025-06-22] MEDS: MIRALAX PO (08:04)
[2025-06-22] MEDS: RISPERDAL M-TAB (ORALLY DISINTEGRATING) 0.5 MG PO (08:04)
[2025-06-22] MEDS: URECHOLINE 25 MG PO ×2 (08:08→13:16)
[2025-06-22 09:07] VITALS: BP 130/89
[2025-06-22 10:55] LABS: INR 1.03; PT 13.8 Sec (11.4-14.6)
[2025-06-22 10:56] LABS: APTT 28.5 Sec (23.4-35.0)
--- NOTE | 2025-06-22 12:36 | W.PN.UPDATE ---
Update Note
Progress Note Update
Patient is now sleeping but had a terrible night, agitated and needing restraints despite taking 1.5 mg of Risperdal.
Son wants to take her home but is concerned about not being able to handle her at night which is understandable.
The Risperdal seems ineffective so we could try Zyprexa initially at 2.5 mg at PM as well a q6h prn. I discussed risks with son and he as her guardian understands the possible risks such as cardiovascular issues and strokes and accepts them.
Will continue F/U.
[2025-06-22] MEDS: ZYPREXA 2.5 MG PO ×2 (13:17→16:51)
[2025-06-22 15:00] VITALS: BP 105/71
[2025-06-22] MEDS: URECHOLINE PO (16:54)
--- NOTE | 2025-06-22 17:51 | PTCARENOTE ---
Pt with increased agitation 5 minutes after son left. agitated not re directable not following instructions, saying shes anxious and openly says 'look at me im crazy, cant you tell.' De escalation techniques attempted. The patient wanted to go for
walk in hallway which has historically relieved alot of her panic attacks. However, she has had several episodes of diarrhea incontinence with ambulating without diapers. At this time, the patient was jumping out of chair every 45 seconds being
assisted back into chair within seconds for safaguilar. pt unstable on feet by self, As soon as this nurse would walk away she would jump out again, this repeated for apporximately 6 minutes. patient's anxiety panic psychosis worsened and starting
yelling. Attempted to put into Erica chair, the patient's anxiety peaked and was using her strength to not go in. not redirectable. decision was made to call rick ramirez to assist her with getting into a safe position in [place] chair. As soon as the
rick ramirez team arrived she calmed down and allowed us to put on the tray. She calmed down is now resting, team mate put on román and patient now appears comfortable. her chair is in door way. notified and ordered soco pastor
[2025-06-22] MEDS: MELATONIN 5 MG PO (21:11)
[2025-06-22] MEDS: VALIUM 5 MG PO (21:11)
[2025-06-22 23:43] VITALS: BP 95/58
[2025-06-23 05:50] VITALS: BMI 38.0
[2025-06-23 07:00] VITALS: BP 130/78
[2025-06-23] MEDS: ANUSOL HC RECTAL (09:19)
[2025-06-23] MEDS: ELIQUIS 5 MG PO (09:19)
[2025-06-23] MEDS: COLACE PO (09:19)
[2025-06-23] MEDS: LOPRESSOR 25 MG PO (09:19)
[2025-06-23] MEDS: MIRALAX PO (09:22)
[2025-06-23] MEDS: ZYPREXA PO (09:24)
[2025-06-23] MEDS: URECHOLINE 25 MG PO (09:37)
--- NOTE | 2025-06-23 11:02 | W.PN.HOSP.TC ---
Today's Communication/Plan
-
DC on home hospice
Assessment / Plan
Assessment / Plan
A/P:
Dementia
-Patient with prior history of hospital acquired delirium and agitation
- Currently with behavioral issues
- On Risperdal, Valium per psychiatry
-Medical team had a family meeting on 06/20-->Discussed with son and granddaughter and explained that she is not terminal and she is not going to inpatient hospice She is appropriate for continuing outpatient palliative care-see palliative care
consult. Family is interested in taking her home if sundowning manageable . The options for discharge is home with home health versus SNF versus outpatient hospice.
-Discussed with bedside today who wishes to proceed with home hospice
Epistaxis
-Resolved
-Coag studies normal
-Watch while on Eliquis
Acute Urinary Retention, possibly related to constipation/displaced colon in setting of large renal cyst
-Roberts catheter placed in emergency department
- UA does suggest UTI;no hematuria
- Appreciate urology input who recommends treating constipation ; with chronic Roberts no indication for further scheduled bethanechol. voiding trial-failed Roberts catheter back in place. Physical therapy treatments and constipation treatments
- Urine clear
UTI
Completed a 5 days course of IV and oral antibiotics.
Urine culture pansensitive E. coli
MAGO - raise in Cr noted . Doubt obstructive uropathy -follow draining well. No extrarenal losses. Not sure about oral intake. BUN is up. Creatinine trended down slightly off IV fluids and up after diuretic.
Large Right Renal Cyst
- Recommends no intervention by urology
Constipation, suspect related to displacement of colon due to large renal cyst
- Continue with Colace and MiraLAX. Advise daily bowel movement going forward for now.
Elevated Troponin
-Reviewed prior records for [place] which also revealed elevated troponin, possibly chronically elevated
-Patient is without chest pain at present time
-Continue to monitor
Elevated BNP
-obtained chest x-ray and bnp
-Patient without clinical symptoms of heart failure at this time
-Echo May 2025: Severely increased wall thickness consistent with severe concentric hypertrophy. Left ventricular ejection fraction 55-60%
-Continue low sodium diet
-Monitor Daily Weights
Atrial Fibrillation, seems to be persistent at this point in time
-Continue Eliquis for anticoagulation
-Continue metoprolol for rate control
Insomnia
-Continue trazodone at increased doses
-Added melatonin
DVT proph: Eliquis
Code Status: DNR
Medically stable for discharge
Case management to look into home hospice
Anticipated Discharge: Today
Subjective/Interval History
-
Date of Service: June 23, 2025
Patient sleepy but arousable.
Son at bedside who states that agitation is controlled she is recognizing people.
Son explains to me that he wants to take her home on home hospice. He was in touch with home hospice team.
Objective Data
-
Vital Signs:
Vital Signs
Temp Pulse Resp BP Pulse Ox
97.3 F 83 18 130/78 97
06/23/25 07:00 06/23/25 09:19 06/23/25 07:00 06/23/25 09:19 06/23/25 07:00
I&O
06/22/25 06/23/25 06/24/25
06:59 06:59 06:59
Intake Total 540 / 540 480 / 480
Output Total 2175 / 2175 700 / 700
Balance -1635 / -1635 -220 / -220
Review of Systems
-
Unable to obtain full review of systems at this time due to: Dementia
Physical Exam
-
General: Comfortable
Respiratory: Non Labored Respirations; Negative Accessory Resp Muscle Use
Cardiac: Regular Rhythm and S1/S2; Negative Tachycardic
Genito-urinary: Clear Urine and Roberts
Neuro: Sedated (arousable)
Psych: Calm and Confused
--- NOTE | 2025-06-23 11:40 | CM ---
Spoke with Bertha Hays # [phone] she said she has all clinical fax they need.
As per family request DME to be delivered later time.Bertha requested patient home at 3 pm.
Confirmed address as [address] [facility] [address] [address] with Hospice
Viola said she would transport patient to home.
IMM reviewed with Viola and she agrees with discharge and IMM.
PLAN Home with [facility] fax [phone] .
[2025-06-23 13:10] VITALS: BP 108/72
--- NOTE | 2025-06-24 16:00 | W.DCSUMMARY ---
Discharge Summary
Discharge Data
Date of Admission: 06/10/25
Date of Discharge: 06/23/25
-
Pending Results: No
Hospital Course
Primary diagnosis:
Acute urinary retention
Urinary tract infection
Constipation
Large right renal cyst
Secondary diagnosis:
Persistent L fibrillation
Dementia
Hospital course:
84-year-old lady with advanced dementia and prior behavioral disturbances presented to the hospital because of increasing frequency of urine and was discovered to have large volume urinary retention. She was urinating every hour prior coming to the
hospital. Initial UA did not suggest UTI. There was no hematuria.
CT of the abdomen pelvis showed a 17.2 x 16.3 cm exophytic cyst within the right kidney with associated mass effect which causes anterior medial displacement of the ascending colon and mild medial displacement of the right kidney.
She also has a longstanding history of constipation. Suspected urinary retention may be secondary to constipation of the large renal cyst.
She was treated with bowel regimen with good result. Urology did not recommend any further diagnostic testing for this as. Possibility of a benign cyst was entertained.
Post catheter she was having hematuria and urine culture showed E. coli and she was treated for possible UTI.
During the stay it was noted that she was having poor oral intake and then she had elevated BUN/creatinine which was felt probably secondary to dehydration. With the fluid support her BUN did come down and creatinine was at 1.2. Baseline being 0.8.
Urology recommended continued Roberts catheter as she failed as she failed inpatient voiding trial. With the goals of care being hospice Roberts catheter was left in place.
She had significant behavioral issues requiring psych of pharmacotherapy and as well as constant reorientation. She was also seen by psychiatrist.
With advanced dementia and the advanced age family felt that goals of care should be more comfort and opted for hospice at home.
Consultants on board:
Urology-Dr. Parminder Rodarte
Discharge Plan
-
Patient Disposition: Home with Hospice
Discharge Diagnosis/Procedures: Urinary retention. Urinary tract infection. Dementia with behavioral alterations and delirium.
Condition: Fair
Diet: Regular
Activity: As tolerated
Driving Restrictions: No driving
Bathing Restrictions: None
Other Services: Hospice
Referrals:
Primary care provider [Other] - in less than 1 week
Ekaterina Thornton, DO [Active, Urology]
Referral Note: for management of urinary retention
UNKNOWN - PT DOES,NOT KNOW [Family Provider]
Prescriptions:
New
melatonin 5 mg Tablet
5 mg PO HS Qty: 30 0RF
docusate sodium 100 mg Capsule
100 mg PO BID Qty: 60 0RF
polyethylene glycol 3350 17 gram Powder In Packet
17 g PO DAILY Qty: 30 0RF
olanzapine 2.5 mg Tablet
2.5 mg PO DAILY@1600 Qty: 30 0RF
diazepam 5 mg Tablet
5 mg PO DAILY@2000 Qty: 30 0RF
Continued
metoprolol tartrate 25 mg tablet
25 mg PO BID
Eliquis 5 mg tablet
5 mg PO BID
Discontinued
trazodone 50 mg tablet
50 mg PO HS
olanzapine 2.5 mg tablet
2.5 mg PO DAILYPRN PRN (Reason: agitation/delirium)
trospium 20 mg tablet
20 mg PO BID
Discharge Orders:
Discharge Patient (As Directed); Ordered 06/23/25
Ordered By: Marino Banks
Discharge Date and Time
Discharge Date/Time: 06/23/25 13:53
Print Language: ROMANSH
== END 2025-06-23 13:53 | disposition hospice, home (50) | DRG 699 ==
LOC: 3 WEST ACU 18:20
PROVIDERS: Hospitalist; Nurse Practitioner Family; Nurse Practitioner Gerontology; Physician Assistant; Physician Assistant Medical; ADMITTING PHYSICIAN Internal Medicine; CONSULT PHYSICIAN Psychiatry & Neurology Psychiatry; CONSULT PHYSICIAN Specialist; CONSULT PHYSICIAN Student in an Organized Health Care Education/Training Program; EMERGENCY PHYSICIAN Emergency Medicine
PROC: 0T9B70Z Drainage of Bladder with Drainage Device, Via Natural or Artificial Opening (ICD-10-PCS; 2025-06-10)
DX: N28.1 Cyst of kidney, acquired (principal); F03.A18 Unspecified dementia, mild, with other behavioral disturbance; F03.A4 Unspecified dementia, mild, with anxiety; I48.19 Other persistent atrial fibrillation; N39.0 Urinary tract infection, site not specified; R33.9 Retention of urine, unspecified; N17.9 Acute kidney failure, unspecified; R41.82 Altered mental status, unspecified; G47.00 Insomnia, unspecified; B96.20 Unspecified Escherichia coli [E. coli] as the cause of diseases classified elsewhere; N32.81 Overactive bladder; E87.6 Hypokalemia; R47.81 Slurred speech; R04.0 Epistaxis; R79.89 Other specified abnormal findings of blood chemistry; K59.00 Constipation, unspecified; Z66 Do not resuscitate; Z79.01 Long term (current) use of anticoagulants
CPT/HCPCS: 51702; 51798; 70450; 71045; 71046; 74177; 80048; 80053; 80076; 81003; 81015; 82962; 83735; 83880; 84132; 84484; 85025; 85027; 85610; 85730; 87071; 87086; 87186; 97110; 97116; 97162; 97166; 97530; 97535; 99285; Q9967